=== PATIENT | female | born 1935 | race Caucasian/White ===

== ENCOUNTER 2021-12-01 18:06 | Inpatient (IN) | payer MEDICARE, OTHER, SELFPAY ==
[2021-12-01 18:19] VITALS: BP 161/93; PULSE 82; RESP 14; TEMP 36.4; O2SAT 96
--- NOTE | 2021-12-01 18:32 | CTR_ITS ---
PROCEDURE INFORMATION: Exam: CT Cervical Spine Without Contrast Exam date and time: 12/01/2021 6:59 PM Age: 86 years old Clinical indication: Injury or trauma; Fall; Blunt trauma; Additional info: Fall, AMS TECHNIQUE: Imaging protocol: Computed tomography images of the cervical spine without contrast. Radiation optimization: All CT scans at this facility use at least one of these dose optimization techniques: automated exposure control; mA and/or kV adjustment per patient size (includes targeted exams where dose is matched to clinical indication); or iterative reconstruction. COMPARISON: CT facial bones wo con* [id number] 12/01/2021 6:56 PM RADIATION DOSE METRICS: Total DLP (mGy-cm): 478.79 FINDINGS: Bones/joints: No acute fracture. Normal alignment. C2-C3: No significant disc protrusion. No severe spinal canal stenosis. No significant neural foraminal narrowing. C3-C4: No significant disc protrusion. No severe spinal canal stenosis. No significant neural foraminal narrowing. C4-C5: No significant disc protrusion. No severe spinal canal stenosis. No significant neural foraminal narrowing. C5-C6: No significant disc protrusion. No severe spinal canal stenosis. No significant neural foraminal narrowing. C6-C7: No significant disc protrusion. No severe spinal canal stenosis. No significant neural foraminal narrowing. C7-T1: No significant disc protrusion. No severe spinal canal stenosis. No significant neural foraminal narrowing. Lungs: Lung apices are normal. Soft tissues: Unremarkable. CT/CT cervical spin wo con* [id number] IMPRESSION: No acute findings.
--- NOTE | 2021-12-01 18:32 | CTR_ITS ---
PROCEDURE INFORMATION: Exam: CT Chest Without Contrast; Diagnostic Exam date and time: 12/01/2021 7:06 PM Age: 86 years old Clinical indication: Injury or trauma; Fall; Generalized; Blunt trauma (contusions or hematomas); Injury details: Left hip pain; Prior surgery; Surgery date: 6+ months; Surgery type: Hyst; Additional info: Fall, AMS TECHNIQUE: Imaging protocol: Diagnostic computed tomography of the chest without contrast. Radiation optimization: All CT scans at this facility use at least one of these dose optimization techniques: automated exposure control; mA and/or kV adjustment per patient size (includes targeted exams where dose is matched to clinical indication); or iterative reconstruction. COMPARISON: [place] Chest 1 [place] [id number] 05/13/2017 12:06 PM RADIATION DOSE METRICS: Total DLP (mGy-cm): 1255.96 FINDINGS: Lungs: Right lower lobe atelectasis. Emphysematous changes. Pleural spaces: Unremarkable. No pneumothorax. No pleural effusion. Heart: Coronary artery atherosclerotic calcifications. Lymph nodes: Several prominent lymph nodes in the mediastinum some of which are partially calcified measuring 14 mm. Vasculature: Unremarkable. No aortic aneurysm. 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 T12 vertebral body compression fracture with some retropulsion of bony fragments and mild spinal canal narrowing, age indeterminate. 14.3 mm Soft tissues: Unremarkable. PROCEDURE INFORMATION: Exam: CT Abdomen And Pelvis Without Contrast Exam date and time: 12/01/2021 7:06 PM Age: 86 years old Clinical indication: Injury or trauma; Fall; Generalized; Blunt trauma (contusions or hematomas); Injury details: Left hip pain; Prior surgery; Surgery date: 6+ months; Surgery type: Hyst; Additional info: Fall, AMS TECHNIQUE: Imaging protocol: Computed tomography of the abdomen and pelvis without contrast. Radiation optimization: All CT scans at this facility use at least one of these dose optimization techniques: automated exposure control; mA and/or kV adjustment per patient size (includes targeted exams where dose is matched to clinical indication); or iterative reconstruction. COMPARISON: No relevant prior studies available. RADIATION DOSE METRICS: Total DLP (mGy-cm): 1255.96 FINDINGS: Liver: Normal. No mass. Gallbladder and bile ducts: Cholelithiasis. Pancreas: Normal. No ductal dilation. Spleen: Normal. No splenomegaly. Adrenal glands: Normal. No mass. Kidneys and ureters: Normal. No hydronephrosis. Stomach and bowel: Diverticulosis without diverticulitis. Appendix: No evidence of appendicitis. Intraperitoneal space: Unremarkable. No free air. No significant fluid collection. Vasculature: Unremarkable. No abdominal aortic aneurysm. Lymph nodes: Unremarkable. No enlarged lymph nodes. Urinary bladder: Rider catheter in the urinary bladder with some air presumed iatrogenic. Reproductive: Unremarkable as visualized. Bones/joints: Left hip intertrochanteric comminuted somewhat displaced fracture, potentially acute. Soft tissues: Unremarkable. CT/[place] [id number] IMPRESSION: 1. Coronary artery atherosclerotic calcifications. 2. 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 3. Several prominent lymph nodes in the mediastinum some of which are partially calcified measuring 14 mm. 4. Right lower lobe atelectasis. 5. Emphysematous changes. 6. T12 vertebral body compression fracture with some retropulsion of bony fragments and mild spinal canal narrowing, age indeterminate. 14.3 mm IMPRESSION: 1. Left hip intertrochanteric comminuted somewhat displaced fracture, potentially acute. 2. Cholelithiasis. 3. Rider catheter in the urinary bladder with some air presumed iatrogenic. 4. Diverticulosis without diverticulitis.
--- NOTE | 2021-12-01 18:32 | XRR_ITS ---
PROCEDURE INFORMATION: Exam: XR Left Hip Exam date and time: 12/01/2021 7:42 PM Age: 86 years old Clinical indication: Hip pain; Left hip; Additional info: Fall, L hip pain, internal rotation TECHNIQUE: Imaging protocol: XR Left hip. Views: 2 or 3 views hip with pelvis when performed. COMPARISON: [place] [id number] 12/01/2021 7:06 PM FINDINGS: Bones/joints: Left hip basicervical to intertrochanteric mildly displaced fracture. Soft tissues: Unremarkable. XR/XR hip LT 2-3V wo/w pel* [id number] IMPRESSION: Left hip basicervical to intertrochanteric mildly displaced fracture.
--- NOTE | 2021-12-01 18:32 | CTR_ITS ---
PROCEDURE INFORMATION: Exam: CT Head Without Contrast Exam date and time: 12/01/2021 6:52 PM Age: 86 years old Clinical indication: Injury or trauma; Fall; Blunt trauma (contusions or hematomas); Additional info: Fall, AMS TECHNIQUE: Imaging protocol: Computed tomography of the head without contrast. Radiation optimization: All CT scans at this facility use at least one of these dose optimization techniques: automated exposure control; mA and/or kV adjustment per patient size (includes targeted exams where dose is matched to clinical indication); or iterative reconstruction. COMPARISON: CT head wo con* [id number] 05/13/2017 1:02 PM RADIATION DOSE METRICS: Total DLP (mGy-cm): 860.24 FINDINGS: Brain: Bilateral thalamic and basal ganglia chronic lacunar infarcts. Cerebral ventricles: No ventriculomegaly. Paranasal sinuses: Visualized sinuses are unremarkable. No fluid levels. Mastoid air cells: Visualized mastoid air cells are well aerated. Bones/joints: Unremarkable. No acute fracture. Soft tissues: Unremarkable. Other findings: Right temporal chronic infarct. Diffuse ventricular dilation, similar to prior exam likely secondary to underlying parenchymal atrophy. CT/CT head wo con* [id number] IMPRESSION: 1. Negative for intracranial hemorrhage or mass effect. 2. Right temporal chronic infarct. 3. Diffuse ventricular dilation, similar to prior exam likely secondary to underlying parenchymal atrophy. 4. Bilateral thalamic and basal ganglia chronic lacunar infarcts.
--- NOTE | 2021-12-01 18:32 | CTR_ITS ---
PROCEDURE INFORMATION: Exam: CT Maxillofacial Without Contrast Exam date and time: 12/01/2021 6:56 PM Age: 86 years old Clinical indication: Injury or trauma; Fall; Blunt trauma (contusions or hematomas); Other: Nothing visbly noted; Additional info: Fall, AMS TECHNIQUE: Imaging protocol: Computed tomography images of the face without contrast. Radiation optimization: All CT scans at this facility use at least one of these dose optimization techniques: automated exposure control; mA and/or kV adjustment per patient size (includes targeted exams where dose is matched to clinical indication); or iterative reconstruction. COMPARISON: CT head wo con* [id number] 12/01/2021 6:52 PM RADIATION DOSE METRICS: Total DLP (mGy-cm): 424.06 FINDINGS: Orbital cavities: Orbits are normal. Globes are unremarkable. Bones/joints: No acute fracture. Paranasal sinuses: Normal. No air-fluid levels. Soft tissues: Unremarkable. CT/CT facial bones wo con* [id number] IMPRESSION: No acute findings.
--- NOTE | 2021-12-01 18:35 | ECG_ITS ---
[facility] Test Date: 2021-12-01 Pat Name: Rita Vega Department: Room: Gender: Female Associate Automation Engineer: : [id number] Requested By: Martinez Ward Order Number: [id number] Sara MD: Rusty Vega M.D. Measurements Intervals [place] Rate: 81 P: 58 AR: 202 QRS: 106 QRSD: 95 T: 56 QT: 395 QTc: 459 Interpretive Statements SINUS RHYTHM INCOMPLETE RIGHT BUNDLE BRANCH BLOCK [90+ ms QRS DURATION, TERMINAL R IN V1/V2, 40+ ms S IN I/aVL/V4/V5/V6] POSSIBLE RIGHT VENTRICULAR HYPERTROPHY [SOME/ALL OF: PROMINENT R IN V1, LATE TRANSITION, RAD, PAUL, SSS] Compared to ECG 05/13/2017 22:17:54 Incomplete right bundle-branch block now present Electronically Signed On 12-02-2021 17:56:09 CDT by Rusty Vega M.D. [id number]
[2021-12-01 18:37] VITALS: BP 123/71; PULSE 85; RESP 16; O2SAT 96
--- NOTE | 2021-12-01 18:37 | W.ED.FALL ---
HPI - Fall General: Chief Complaint: ER Hold Stated Complaint: FALL WITH DEFORMITY SHORTENING AND ROTATION Time Seen by Provider: 12/01/21 18:24 History of Present Illness: Ms. Vega is an 86-year-old lady with reported history of stroke on aspirin and Plavix who presents to the emergency department due to fall with concern of right hip pain. Patient herself reports falling at home, she is unsure exactly why she fell but does denies preceding prodrome. She primarily landed on her left side and was unable to get up. Pain in the left hip region. Intensity of symptoms at worst was severe and improved with EMS administered analgesia. Worse with palpation and attempted movement. Unable to stand. No other specific changes in health, exacerbating, or alleviating factors identified. Fall from: standing Place fall occurred: home Loss of consciousness: Unsure Prolonged down time: unclear Review of Systems General: Reports: 10 or more systems reviewed and unremarkable except in HPI and below PFSH ED PFSH: Medical History History of stroke Surgical History History of hysterectomy Physical Exam Const: COMMON NORMALS: alert GENERAL APPEARANCE: cooperative and well developed HENMT: COMMON NORMALS: normocephalic and atraumatic HEAD & SCALP: normocephalic and atraumatic THROAT: posterior oropharynx normal Eye: COMMON NORMALS: conjunctivae normal CONJUNCTIVA: Yes conjunctivae normal SCLERA: sclerae normal Neck/C-Spine: COMMON NORMALS: supple GENERAL: Yes trachea midline Resp: COMMON NORMALS: normal respiratory effort and clear to auscultation bilaterally EFFORT & INSPECTION: Yes able to speak in complete sentences AUSCULTATION: clear to auscultation bilaterally Cardio: COMMON NORMALS: regular rate and regular rhythm RATE: regular rate RHYTHM: regular rhythm GI: COMMON NORMALS: Soft to palpation PALPATION: Yes Soft to palpation and No Tenderness to palpation present (GI) Extremity: NARRATIVE EXTREMITY EXAM: Tenderness palpation of left hip GENERAL: Yes normal exam except as noted and No edema Neuro: COMMON NORMALS: moves all extremities SENSORIUM/ORIENTATION: Yes alert and No Orientation impaired OTHER: Exact circumstances are somewhat unclear Psych: COMMON NORMALS: mental status grossly normal and Normal thought process present THOUGHT PROCESS: Normal thought process present Course ED course: - Patient was seen and evaluated by me at bedside - Patient placed on cardiac monitors, IV access obtained - Initial evaluation notable for exam as above. Head to toe exam performed. - Labs and xrays personally interpreted by me. EKG showing sinus rhythm, no STEMI -Analgesia given, Tdap updated for abrasions - Labs notable for mild leukocytosis, macrocytic anemia. Metabolic of mild decreased sodium/mild evidence of dehydration. Urinalysis not concerning urinary tract infection. - Imaging notable for various incidental findings. Traumatic injury isolated to left intertrochanteric fracture. On CT chest abdomen pelvis there is a T12 compression fracture with mild retropulsion, patient is a history of falls and patient is reexamined after this finding. She denies back pain and there is no tenderness specifically at this region, therefore believe that this is a chronic finding. Usually no distal sensory changes in the lower extremities other than baseline. - Discussed with orthopedics on-call - Upon serial reexamination after treatment the patient was improved - Based on patient history, evaluation, and testing as interpreted the most likely cause of the patient's condition is fall with hip fracture - The results of ED evaluation were discussed with the patient including plan for admission due to requirement for level of care not available if discharged to prevent significant worsening/deterioration. - Patient to be admitted to Dr Whitaker's service. - Patient was admitted without further deterioration or significant events. Note: Click bubbles or prepopulated larose in note writing are used for assistance with data collection and billing and are inherently more limited than narrative and other text portions of this note. Please use narrative for additional clinical history and defer to narrative/free test for any case of contradictory information. If information appears in only free text or click bubble it should be considered present or absent as reported. Please contact note clinical writer for clarifications of clinical information or contradictory information. MDM is a brief summary, contradictory or erroneous seeming information should be clarified and full note should be reviewed. Vital Signs: Vital signs: Vital Signs Temperature 98.0 F 12/08/21 14:24 Pulse Rate 73 12/08/21 14:24 Respiratory Rate 17 12/08/21 14:24 Blood Pressure 170/75 12/08/21 14:24 Pulse Oximetry 93 12/08/21 14:24 MDM - Fall Medical Decision Making 86-year-old lady presenting due to fall found to have hip fracture. Admitted for definitive management. Medical Records I reviewed the patient's medical records. Lab Data I reviewed the patient's lab results. : 12/07/21 03:34 12/08/21 02:21 Radiology Impressions Cervical Spine CT 12/01/21 18:32 IMPRESSION: No acute findings. Chest/Abdomen/Pelvis CT 12/01/21 18:32 IMPRESSION: 1. Coronary artery atherosclerotic calcifications. 2. 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 3. Several prominent lymph nodes in the mediastinum some of which are partially calcified measuring 14 mm. 4. Right lower lobe atelectasis. 5. Emphysematous changes. 6. T12 vertebral body compression fracture with some retropulsion of bony fragments and mild spinal canal narrowing, age indeterminate. 14.3 mm IMPRESSION: 1. Left hip intertrochanteric comminuted somewhat displaced fracture, potentially acute. 2. Cholelithiasis. 3. Rider catheter in the urinary bladder with some air presumed iatrogenic. 4. Diverticulosis without diverticulitis. Face CT 12/01/21 18:32 IMPRESSION: No acute findings. Hip/Pelvis X-Ray 12/02/21 19:16 IMPRESSION: 1. Internal orthopedic fixation involving an intertrochanteric fracture of the left hip in satisfactory position. Chest CT 12/05/21 12:47 IMPRESSION: 1. 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 2. Small right and small to moderate left pleural effusions. 3. Coronary artery atherosclerotic calcifications. 4. Scattered prominent mediastinal lymph nodes measuring up to 13 mm nonspecific. 5. Emphysematous changes. 6. Bibasilar atelectasis versus minimal infiltrate. 7. T12 vertebral body compression fracture with some retropulsion of bony fractures with mild spinal canal narrowing appears chronic. 8. Cholelithiasis. Head CT 12/05/21 12:55 IMPRESSION: 1. Old infarcts. 2. No acute intracranial finding. 3. No significant change compared with 12/01/2021. Chest X-Ray 12/08/21 08:00 IMPRESSION: No substantial interval change. Similar small left pleural effusion with left basilar atelectasis. Laboratory Results WBC 9.8 10^3/uL (4.0-10.0) 12/02/21 01:19 RBC 3.22 10^6/uL (4.1-5.3) L 12/02/21 01:19 Hgb 10.0 g/dL (11.5-15.3) L 12/02/21 01:19 Hct 32.6 % (37.0-47.0) L 12/02/21 01:19 MCV 101.2 fl (81-99) H 12/02/21 01:19 MCH 31.1 pg (28.0-34.0) 12/02/21 01:19 MCHC 30.7 g/dL (30.0-36.0) 12/02/21 01:19 RDW 13.7 % (12.1-15.1) 12/02/21 01:19 Plt Count 197 10^3/cmm (130-400) 12/02/21 01:19 MPV 10.8 fL (7.4-10.4) H 12/02/21 01:19 Neut % (Auto) 85.2 % 12/02/21 01:19 Lymph % (Auto) 5.7 % 12/02/21 01:19 [place] % (Auto) 8.4 % 12/02/21 01:19 Eos % (Auto) 0.1 % 12/02/21 01:19 Baso % (Auto) 0.2 % 12/02/21 01:19 Neut # (Auto) 8.37 10^3/uL (1.8-7.7) H 12/02/21 01:19 Lymph # (Auto) 0.6 10^3/uL (0.8-4.8) L 12/02/21 01:19 [place] # (Auto) 0.8 10^3/uL (0.2-0.9) 12/02/21 01:19 Eos # (Auto) 0.0 10^3/uL (0.0-0.8) 12/02/21 01:19 Baso # (Auto) 0.0 10^3/uL (0.0-0.1) 12/02/21 01:19 Nucleated RBC % (auto) 0 % 12/02/21 01:19 Nucleated RBCs # 0.0 /100WBC 12/02/21 01:19 PT 14.10 SECONDS (12.1-14.9) 12/01/21 18:10 INR 1.05 (0.8-1.2) 12/01/21 18:10 Sodium 137 mmol/L (136-145) 12/02/21 01:19 Potassium 5.0 mmol/L (3.5-5.1) 12/02/21 01:19 Chloride 104 mmol/L (98-107) 12/02/21 01:19 Carbon Dioxide 27 mmol/L (22-29) 12/02/21 01:19 Anion Gap 11.0 (5-19) 12/02/21 01:19 BUN 24 mg/dL (8-23) H 12/02/21 01:19 Creatinine 1.0 mg/dL (0.5-0.9) H 12/02/21 01:19 GFR Calculation Not Reportable 12/02/21 01:19 Glucose 143 mg/dL (65-115) H 12/02/21 01:19 Calculated Osmolality 291 mOsm/kg (285-295) 12/02/21 01:19 Calcium 8.3 mg/dL (8.5-10.5) L 12/02/21 01:19 Total Bilirubin 0.4 mg/dL (0.15-1.2) 12/01/21 18:10 AST 14 U/L (0-32) 12/01/21 18:10 ALT 9 U/L (0-33) 12/01/21 18:10 Alkaline Phosphatase 84 IU/L (35-105) 12/01/21 18:10 Troponin T Baseline 7 ng/L (0-10) 12/01/21 18:10 Troponin T 120 Minute 7.07 ng/L (0-10) 12/01/21 19:38 Delta Troponin T 0.07 ABS# (0-10) 12/01/21 19:38 Troponin T Hi Sens 6Hr 6.85 ng/L (0-10) 12/02/21 01:19 Troponin T Hi Sens 6Hr Delta -0.15 ng/L (0-12) L 12/02/21 01:19 Total Protein 6.5 g/dL (6.6-8.7) L 12/01/21 18:10 Albumin 3.8 g/dL (3.5-5.2) 12/01/21 18:10 Globulin 2.7 g/dL (1.3-4.6) 12/01/21 18:10 Urine Color Yellow (Yellow) 12/01/21 18:30 Urine Appearance Clear (CLEAR) 12/01/21 18:30 Urine pH 8 (5-7) H 12/01/21 18:30 Ur Specific [place] 1.015 (1.005-1.030) 12/01/21 18:30 Urine Protein Neg (Negative) 12/01/21 18:30 Urine Glucose (UA) Norm (Normal) 12/01/21 18:30 Urine Ketones Negative (Negative) 12/01/21 18:30 Urine Blood Neg (Negative) 12/01/21 18:30 Urine Nitrate Negative (Negative) 12/01/21 18:30 Urine Bilirubin Neg (Negative) 12/01/21 18:30 Prot Sulfosalicylic Acd Negative (Negative) 12/01/21 18:30 Urine Urobilinogen Norm mg/dL (Negative) 12/01/21 18:30 Ur Leukocyte Esterase Negative (Negative) 12/01/21 18:30 Discharge Plan Discharge Patient Disposition: Admitted As Inpatient Admit Provider: Hayes Whitaker Clinical Impression: Fall, Closed fracture of left hip Condition: Stable Discharge Diet: Cardiac Discharge Activity: Resume usual activity and Increase activity as tolerated Coding Level of Care Code ED Insurance Salesman for [employer] Fwd Exam Comprehensive
[2021-12-01 18:45] LABS: INR 1.05 (0.8-1.2)
[2021-12-01 18:53] LABS: Troponin(5th) Baseline 7 ng/L (0-10)
[2021-12-01 18:55] LABS: Alanine Aminotransferase 9 U/L (0-33); Albumin Level 3.8 g/dL (3.5-5.2); Alkaline Phosphatase 84 IU/L (35-105); Anion Gap 13.8 (5-19); Aspartate Amino Transferase 14 U/L (0-32); Blood Urea Nitrogen 21 mg/dL (8-23); Carbon Dioxide 25 mmol/L (22-29); Chloride 98 mmol/L (98-107); Globulin 2.7 g/dL (1.3-4.6); Glucose 129 mg/dL (65-115); Osmolality Calculated 281 mOsm/kg (285-295); Potassium 3.8 mmol/L (3.5-5.1); Sodium 133 mmol/L (136-145); Total Bilirubin 0.4 mg/dL (0.15-1.2); Total Protein 6.5 g/dL (6.6-8.7)
[2021-12-01 19:05] LABS: Add Urine Microscopic? NO; Charge for UA Resulting for Rev
[2021-12-01 19:09] LABS: Bilirubin Urine Neg (Negative); Blood Urine Neg (Negative); Glucose Urine UA Norm (Normal); Ketones Urine Negative (Negative); Leukocyte Esterase Urine Negative (Negative); Nitrate Urine Negative (Negative); Protein Urine Neg (Negative); Specific Gravity, Urine 1.015 (1.005-1.030); Sulfosalicylic Acid Urine Negative (Negative); Urine Appearance Clear (CLEAR); Urine Color Yellow (Yellow); Urobilinogen Urine Norm (Negative); pH Urine 8 (5-7)
[2021-12-01] MEDS: morphine 4 mg/mL SDV 1 mL 2 MG IVP (19:31)
[2021-12-01] MEDS: tetanus-dipt-pertussis 0.5 mL SDV IM (19:31)
[2021-12-01 20:09] LABS: Troponin 5 2HR 7.07 ng/L (0-10)
[2021-12-01 20:29] VITALS: BP 99/61; PULSE 81; RESP 18; O2SAT 93
--- NOTE | 2021-12-01 20:41 | PM.HP ---
Providers/Chief Complaint Primary Care Provider: Jim Oliveira MD Chief Complaint: FALL WITH DEFORMITY SHORTENING AND ROTATION History of Present Illness Rita Vega is a 86 year old female with past medical history of CVA , dementia , stays at home with daughters, was brought after she experienced a fall at home, from the description provided by the daughters, appears that the fall is secondary to she being off balance. At the time of my examination patient was complaining of mild left hip pain. Patient denied any chest pain shortness of breath, lightheadedness, dizziness, prior to the fall. Imaging studies done in the ER: Has shown : Left hip intertrochanteric comminuted somewhat displaced fracture,. CT head without contrast: Has shown no acute intracranial pathology, CT C-spine has shown no acute findings, CT facial bones without contrast:No acute findings. EKG: Sinus rhythm, with incomplete right bundle branch block. Her other labs and vitals have been reviewed. Review of Systems General: Reports: 10 or more systems reviewed and unremarkable except in HPI and below Const: Denies: fever(s), chills, body aches, change in appetite or diaphoresis Card: Denies: palpitations, edema, swelling of feet/ankles, dyspnea on exertion or orthopnea Resp: Denies: dyspnea, productive cough, wheezing or pain on inspiration GI: Denies: abdominal pain, nausea, vomiting, diarrhea or constipation : Denies: flank pain Musc: Reports: extremity pain; Denies: back pain or extremity swelling Neuro: Denies: headache(s), difficulty walking or confusion Medications/Allergies Home Medications Medication Instructions Recorded Confirmed Last Taken Type aspirin 81 mg tablet,delayed 81 mg PO DAILY 12/01/21 12/01/21 11/29/21 History release clopidogrel 75 mg tablet 75 mg PO DAILY 12/01/21 12/01/21 11/29/21 History donepezil 10 mg tablet 10 mg PO DAILY 12/01/21 12/01/21 11/29/21 History escitalopram oxalate 10 mg tablet 10 mg PO DAILY 12/01/21 12/01/21 11/29/21 History simvastatin 40 mg tablet 40 mg PO DAILY 12/01/21 12/01/21 11/29/21 History Allergies Allergy/AdvReac Type Severity Reaction Status Date / Time No Known Allergies Allergy Unverified 06/06/22 19:43 PFSH Acute PFSH: Medical History History of stroke Surgical History History of hysterectomy Vitals/I&O/Wt Last Vital Signs Temp 97.5 F L 12/01/21 18:19 Pulse 81 12/01/21 20:29 Resp 18 12/01/21 20:29 BP 99/61 12/01/21 20:29 Pulse Ox 93 12/01/21 20:29 Physical Exam HENMT: COMMON NORMALS: normocephalic and atraumatic HEAD & SCALP: normocephalic and atraumatic EXTERNAL EAR: Yes external ears normal Eye: GENERAL EYE: appearance normal, both eyes and all related structures Chest: CHEST: Yes Symmetrical chest wall rise Resp: COMMON NORMALS: clear to auscultation bilaterally EFFORT & INSPECTION: Yes symmetric chest movement AUSCULTATION: clear to auscultation bilaterally Cardio: COMMON NORMALS: regular rate, regular rhythm, S1 normal heart sound present, S2 normal heart sound present, No gallops present (Cardio), No murmurs present (Cardio), No rub (Cardio) and Peripheral pulses 2+ throughout RATE: regular rate RHYTHM: regular rhythm HEART SOUNDS: S1 normal heart sound present and S2 normal heart sound present PERIPHERAL PULSES: Peripheral pulses 2+ throughout GI: COMMON NORMALS: Normal to inspection, nondistended, normoactive bowel sounds present, Soft to palpation, non-tender, No hepatosplenomegaly present and no masses AUSCULTATION: Yes normoactive bowel sounds PALPATION: Yes Soft to palpation and Yes No hepatosplenomegaly present RECTAL EXAM: deferred Extremity: COMMON NORMALS: no clubbing, cyanosis or edema and no pedal edema Neuro: COMMON NORMALS: patient oriented x3 Urinary Catheter Management: Rider: Cath Placed During This Visit: yes Urinary Catheter Date of Insertion: 12/01/21 Data : 12/02/21 01:19 12/02/21 01:19 A&P Assessment and plan (1) Closed fracture of left hip: Status: Acute (2) History of stroke: Status: Acute (3) Fall: Status: Acute Plan 86 year old female with past medical history of CVA , dementia , stays at home with daughters, was brought after she experienced a fall at home, Assessment: #Closed fracture of left hip: Pain control Bowel regimen N.p.o. after midnight Dr. Whitaker is primary #History of CVA: On aspirin Plavix and statin at home #History of dementia: Continue Aricept #DVT prophylaxis: On Lovenox #CODE STATUS:AND Attestations Medical Necessity Statement*: Patient needs to be in hospital for management of left hip fracture. Anticipated length of stay greater than 2 midnights Coding Level of Care Code Acute Information Technology Account Manager for [facility] Fwd Exam Comprehensive Diagnoses Closed fracture of left hip S72.002A History of stroke Z86.73 Fall W19.XXXA
[2021-12-01 20:48] LABS: Troponin 5 2HR Delta 0.07 ABS# (0-10)
[2021-12-01] MEDS: morphine 4 mg/mL SDV 1 mL IVP (21:06)
[2021-12-01] MEDS: enoxaparin 40 mg/0.4 mL Syringe SUBCUT (21:07)
[2021-12-01] MEDS: sodium chloride 0.9% 1,000 ML 75 ML IV (21:23)
[2021-12-01 21:35] LABS: Basophils % 0.3 %; Eosinophils % 0.1 %; Hematocrit 31.9 % (37.0-47.0); Hemoglobin 9.8 g/dL (11.5-15.3); Lymphocytes # 0.4 10^3/uL (0.8-4.8); Lymphocytes % 3.6 %; Mean Corpuscular HGB Conc 30.7 g/dL (30.0-36.0); Mean Corpuscular Hemoglobin 30.8 pg (28.0-34.0); Mean Corpuscular Volume 100.3 fl (81-99); Mean Platelet Volume 10.8 fL (7.4-10.4); Monocytes # 0.6 10^3/uL (0.2-0.9); Monocytes % 5.7 %; Neutrophils # 10.19 10^3/uL (1.8-7.7); Neutrophils % 89.9 %; Nucleated Red Blood Cells % 0 %; Platelet Count 202 10^3/cmm (130-400); Red Blood Count 3.18 10^6/uL (4.1-5.3); Red Cell Distribution Width 13.7 % (12.1-15.1); White Blood Count 11.3 10^3/uL (4.0-10.0)
[2021-12-01] MEDS: sodium chloride 0.9% 1,000 ML 999 ML IV (22:11)
[2021-12-02] VITALS (20 sets, daily range): BP systolic 91–147; BP diastolic 53–82; PULSE 0–86; RESP 12–20; TEMP 36.3–37.3; O2SAT 91–97
--- NOTE | 2021-12-02 | SCC_ITS ---
Procedure done: Open reduction internal fixation lefthip with intramedullary device 72.4 seconds of fluoroscopic guidance, for a cumulative dose of 3.97 mGy, was provided to Dr. Whitaker by the radiology department. C-arm images of the LEFT hip were saved for the patient's permanent record. [facility]
[2021-12-02 01:43] LABS: Basophils % 0.2 %; Eosinophils % 0.1 %; Hematocrit 32.6 % (37.0-47.0); Lymphocytes # 0.6 10^3/uL (0.8-4.8); Lymphocytes % 5.7 %; Mean Corpuscular HGB Conc 30.7 g/dL (30.0-36.0); Mean Corpuscular Hemoglobin 31.1 pg (28.0-34.0); Mean Corpuscular Volume 101.2 fl (81-99); Mean Platelet Volume 10.8 fL (7.4-10.4); Monocytes # 0.8 10^3/uL (0.2-0.9); Monocytes % 8.4 %; Neutrophils # 8.37 10^3/uL (1.8-7.7); Neutrophils % 85.2 %; Nucleated Red Blood Cells % 0 %; Platelet Count 197 10^3/cmm (130-400); Red Blood Count 3.22 10^6/uL (4.1-5.3); Red Cell Distribution Width 13.7 % (12.1-15.1); White Blood Count 9.8 10^3/uL (4.0-10.0)
[2021-12-02 02:05] LABS: Blood Urea Nitrogen 24 mg/dL (8-23); Calcium 8.3 mg/dL (8.5-10.5); Carbon Dioxide 27 mmol/L (22-29); Chloride 104 mmol/L (98-107); Glucose 143 mg/dL (65-115); Osmolality Calculated 291 mOsm/kg (285-295); Sodium 137 mmol/L (136-145); Troponin 5 6HR 6.85 ng/L (0-10)
[2021-12-02 02:14] LABS: Troponin 5 6HR Delta -0.15 ng/L (0-12)
[2021-12-02] MEDS: morphine 4 mg/mL SDV 1 mL 2 MG IVP (06:31)
[2021-12-02] MEDS: sodium chloride 0.9% 1,000 ML 75 ML IV ×2 (06:46→20:50)
--- NOTE | 2021-12-02 07:49 | P.CONIM_ITS ---
Providers/Reason For Consult Consulting Physician/Specialty*: MD Julianne; orthopedic surgery Reason for Consult*: Left intratrochanteric hip fracture Attending Physician: Hayes Whitaker MD Primary Care Provider: Jim Oliveira MD History of Present Illness History of Present Illness Rita Vega is a 86 year old female home with her . She allegedly fell last night with resulting pain in left hip and inability to bear weight. She was transferred to our emergency room where radiographs revealed a left intratrochanteric hip fracture. She is admitted to medicine for surgical clearance anticipated surgical stabilization of her hip Medications/Allergies Home Medications Medication Instructions Recorded Confirmed Last Taken Type aspirin 81 mg tablet,delayed 81 mg PO DAILY 12/01/21 12/01/21 11/29/21 History release clopidogrel 75 mg tablet 75 mg PO DAILY 12/01/21 12/01/21 11/29/21 History donepezil 10 mg tablet 10 mg PO DAILY 12/01/21 12/01/21 11/29/21 History escitalopram oxalate 10 mg tablet 10 mg PO DAILY 12/01/21 12/01/21 11/29/21 History simvastatin 40 mg tablet 40 mg PO DAILY 12/01/21 12/01/21 11/29/21 History Allergies Allergy/AdvReac Type Severity Reaction Status Date / Time No Known Allergies Allergy Unverified 12/01/21 19:43 Current Medications Generic Name Dose Route Start Last Admin Trade Name Freq PRN Reason Stop Dose Admin Enoxaparin Sodium 40 mg 12/01/21 20:45 12/01/21 21:07 Enoxaparin 40 Mg/0.4 Ml Syringe SUBCUT 40 mg Q24H FATOUMATA Administration Sodium Chloride 1,000 mls @ 75 mls/hr 12/01/21 21:00 12/02/21 06:46 Sodium Chloride 0.9% IV 75 mls/hr .[id number] FATOUMATA Administration Morphine Sulfate 2 mg 12/01/21 20:33 12/02/21 06:31 Morphine 4 Mg/Ml Sdv 1 Ml IVP 2 mg Q4H PRN Administration SEVERE PAIN PFSH Acute PFSH: Medical History History of stroke Surgical History History of hysterectomy Vitals/I&O/Wt Last Vital Signs Temp 99.1 F 12/02/21 06:11 Pulse 75 12/02/21 06:11 Resp 20 H 12/02/21 06:31 BP 147/82 12/02/21 06:11 Pulse Ox 92 12/02/21 06:11 12/01/21 12/02/21 12/02/21 22:59 06:59 14:59 Intake Total 703.75 / 703.75 1000 / 1000 Balance 703.75 / 703.75 1000 / 1000 Weight last 48 hrs Weight 136 lb 14.4 oz Physical Exam Narrative: The patient talks with slurred speech but otherwise seems to have good understanding. She has slight shortening and external rotation of the left hip. There is exquisite pain with motion of the left hip. She has no pain with motion of her upper extremities or right lower extremities. He can flex and extend her toes and ankles of both feet. Her sensation is intact to both feet. She has a strong dorsalis pedis pulses bilaterally. Urinary Catheter Management: Rider: Cath Placed During This Visit: yes Reason for Continuing Indwelling Catheter: Perioperative Use in Selected Surgeries Urinary Catheter Date of Insertion: 12/01/21 Data : 12/02/21 01:19 12/02/21 01:19 Other Xray: My impression: 2 views of the left hip are personally interpreted. The patient has a minimally displaced left intratrochanteric hip fracture A&P Assessment and plan (1) Intertrochanteric fracture of left hip: The patient has a unstable left intratrochanteric hip fracture. She has significant osteopenia consistent with age. I discussed options with the patient.. I told the patient we could treat this nonoperatively but certainly they would be at risk for medical problems without surgery. Theywould have problems with pain that would require narcotics for pain control. They would require a long period of bedrest glucose and syrup weigher risk for pneumonia and skin breakdown. I discussed surgical intervention with the patient. I told them with open reduction internal fixation they should be able to be mobilized and resume ambulatory status. We can eliminate the problems associated with prolonged bed rest and would have better control of pain. Certainly there would be inherent risk with surgery. These would would include the risk of cardiac complications, stroke, infection, and even . I discussed risk of any orthopedic implant including nonunion, malunion, a component failure. I discussed the possible need for component removal. I discussed risk of deep venous thromboses and pulmonary emboli that are present with any treatment and the importance of DVT prophylaxis. The patient expressed good understanding of alternative treatments, seem to comprehend, and agrees to surgical intervention. I told her she likely will need fci placement Status: Acute Coding Level of Care Code Acute Senior Controls Analyst for [facility] Diagnoses Intertrochanteric fracture of left hip S72.142A
--- NOTE | 2021-12-02 10:36 | PC.CHAP ---
Pastoral Care Encounter/Spiritual Assessment Type of Contact [] Declined performing artist visit [] Patient/Family/Request visit [] Outpatient visit [] Follow-up visit [] Physician referral [] Code/Alert [x] Routine visit [] Staff referral [] Actively dying [] Patient sleeping [] Family support [] [] Out of room [] Palliative care [] [] Receiving care in room [] Pre-surgical visit [] Trauma [] Long length of stay [] ICU visit [] Other: Relational/Emotional Strength [x] Patient feels connected with others/family/visitors/staff [] Distress [] Loneliness/isolation [] Abandonment x Spirituality of Patient [x] Person of [place] []x Attends Yazdanism of their [place] [x] Believes in Prayer [] Reads Bible or Sikh materials [] There are Spiritual issues to be addressed Computer Numerical Control Machinist Interventions [x Prayer [x] Active listening [x] Non-anxious presence [] Spiritual/emotional support [] Crisis/trauma care [] Spiritual counseling [] Bereavement support [] Provided bereavement packet [] Provided Bible/devotional materials [] Provided toy/stuffed animal, coloring book to patient or family member [] Provided Communion [] Anointing/[place] [] Salvation [x] Completed spiritual assessment [] Other: Impact on Illness or Injury [] Angry [] Fearful [] Anxious [] Often cries [] Exhaustion [] Unable to work [] Unable to attend methodist [] Unable to walk/stand [] Unable to read [] Unable to drive [] Unable to eat/drink [] Unable to sleep [] Unable to be with family [] Patient intubated [] Other: Summary Time spent with patient 10 min
--- NOTE | 2021-12-02 11:41 | P.PN_ITS ---
Subjective Subjective: Patient seen this morning with her daughter at bedside. She is unable to tell me if she is in pain or not. I did offer her that if she is in pain she can let us know and we can give her pain medication. Patient seemed a little confused this morning. Patient does have a history of dementia. Vitals/I&O/Wt Last Vital Signs Temp 97.7 F 12/02/21 08:00 Pulse 77 12/02/21 08:00 Resp 15 12/02/21 08:00 BP 115/64 12/02/21 08:00 Pulse Ox 92 12/02/21 08:00 12/01/21 12/02/21 12/02/21 22:59 06:59 14:59 Intake Total 703.75 / 703.75 1000 / 1000 Balance 703.75 / 703.75 1000 / 1000 Weight last 48 hrs Weight 62.097 kg Physical Exam Narrative: General: Alert, oriented to self, patient seen laying in bed jignesh earing comfortable at this time. On 2 L nasal cannula. Elderly frail-appearing female HEENT: Normocephalic, atraumatic, EOMI, breathing normally, normal respiratory effort Cardio: Regular rate rhythm, normal S1-S2, no murmurs Respiratory: Clear to auscultation bilaterally no gross wheezes or rhonchi GI: Abdomen soft, nontender, nondistended, bowel sounds + Extremities: Trace edema bilateral lower extremities, left leg quite painful to touch on any manipulation. Left leg externally rotated slightly with slight shortening. Urinary Catheter Management: Rider: Cath Placed During This Visit: yes Reason for Continuing Indwelling Catheter: Perioperative Use in Selected Surgeries Urinary Catheter Date of Insertion: 12/01/21 Data : 12/02/21 01:19 12/02/21 01:19 A&P Assessment and plan (1) Intertrochanteric fracture of left hip: Status: Acute (2) Fall: Status: Acute (3) Closed fracture of left hip: Status: Acute (4) History of stroke: Status: Acute Plan #Closed fracture of hip #History of CVA #History of dementia ? Continue Aricept ? On aspirin Plavix statin at home ? We will hold Plavix in anticipation of surgery ? Pain control - Bowel regimen ? Patient is n.p.o. for surgery today ? Patient is on orthopedic surgery service. -We will probably need long-term facility after discharge. DNR/DNI Attestations Medical Necessity Statement*: Anticipate greater than 48-hour period stay for hip fracture. Coding Level of Care Code Acute Physical Therapist Technician for [facility] Diagnoses Intertrochanteric fracture of left hip S72.142A Fall W19.XXXA Closed fracture of left hip S72.002A History of stroke Z86.73
--- NOTE | 2021-12-02 13:34 | ANES.PREANE2 ---
Pre-Anesthetic Assessment Height/Weight: Weight 62.097 kg Temp Pulse Resp BP Pulse Ox 97.8 F 76 14 115/65 91 12/02/21 11:39 12/02/21 11:39 12/02/21 11:39 12/02/21 11:39 12/02/21 11:39 Preop Diagnosis: Left intratrochanteric hip fracture Operation Date: 12/02/21 17:15 Proposed Procedures p Trochanteric Femoral Nail(Left) - Hayes Whitaker MD Was Beta Levon taken within 24 hours: N/A Was Clonidine taken within 24 hours: N/A Last intake: 12/01/21 Social No alcohol and No tobacco Exam alert, clear to auscultation bilaterally and regular rate & rhythm oriented to self, place not year date Airway Submandibular: within normal limits Cervical ROM: Other (limited extension flexion ) Mallampati: Class III Comments: Comments: missing teeth Pulmonary None reported CV/HEM None reported denies arrhythmia, PA, CAD METS + 4 Elevated creatinine and BUN today Hepatic None reported GI None reported Metabolic None reported Musc/skel Osteoarthritis/DJD Acute fx Neuropsych Cerebrovascular Accident (On clopidogrel ) and Dementia CT Head CT/CT head wo con* [id number] IMPRESSION: 1. Negative for intracranial hemorrhage or mass effect. 2. Right temporal chronic infarct. 3. Diffuse ventricular dilation, similar to prior exam likely secondary to underlying parenchymal atrophy. 4. Bilateral thalamic and basal ganglia chronic lacunar infarcts. Anesthetic Plan ASA status: 3 (86 year old female with hx CVA, dementia, now with left hip fx) Anesthesia: Anesthesia Evaluation and General Other: We discussed risk and benefits of general anesthesia including PONV, sore throat (sometimes severe), corneal abrasion, positioning and peripheral nerve injuries, life threatening allergic reaction, post operative ICU admission requiring prolonged intubation, stroke, heart attack, , and rare incidences of recall. Patient consents to proceed with general anesthesia. Risk of > 500 ml blood loss (7ml/kg in children): No Medications/Allergies Home Medications Medication Instructions Recorded Confirmed Last Taken Type aspirin 81 mg tablet,delayed 81 mg PO DAILY 12/01/21 12/01/21 11/29/21 History release clopidogrel 75 mg tablet 75 mg PO DAILY 12/01/21 12/01/21 11/29/21 History donepezil 10 mg tablet 10 mg PO DAILY 12/01/21 12/01/21 11/29/21 History escitalopram oxalate 10 mg tablet 10 mg PO DAILY 12/01/21 12/01/21 11/29/21 History simvastatin 40 mg tablet 40 mg PO DAILY 12/01/21 12/01/21 11/29/21 History Allergies Allergy/AdvReac Type Severity Reaction Status Date / Time No Known Allergies Allergy Unverified 12/01/21 19:43 Current Medications Generic Name Dose Route Start Last Admin Trade Name Fre PRN Reason Stop Dose Admin Aspirin 81 mg 12/02/21 09:00 12/02/21 10:48 Aspirin 81 Mg Ec Tablet PO Not Given DAILY [facility] Atorvastatin Calcium 20 mg 12/02/21 09:00 12/02/21 10:49 Atorvastatin 40 Mg Tablet PO Not Given DAILY FATOUMATA Donepezil HCl 10 mg 12/02/21 09:00 12/02/21 10:49 Donepezil 5 Mg Tablet PO Not Given DAILY FATOUMATA Enoxaparin Sodium 40 mg 12/01/21 20:45 12/01/21 21:07 Enoxaparin 40 Mg/0.4 Ml Syringe SUBCUT 40 mg Q24H FATOUMATA Administration Escitalopram Oxalate 10 mg 12/02/21 09:00 12/02/21 10:49 Escitalopram 10 Mg Tablet PO Not Given DAILY FATOUMATA Sodium Chloride 1,000 mls @ 75 mls/hr 12/01/21 21:00 12/02/21 06:46 Sodium Chloride 0.9% IV 75 mls/hr .[id number] FATOUMATA Administration Morphine Sulfate 2 mg 12/01/21 20:33 12/02/21 06:31 Morphine 4 Mg/Ml Sdv 1 Ml IVP 2 mg Q4H PRN Administration SEVERE PAIN PFSH Anesthesia Medical History History of stroke Surgical History History of hysterectomy Data Anesthesia : 12/02/21 01:19 12/02/21 01:19 Short CBC 12/01/21 12/02/21 Range/Units 21:23 01:19 WBC 11.3 H 9.8 (4.0-10.0) 10^3/uL Hgb 9.8 L 10.0 L (11.5-15.3) g/dL Hct 31.9 L 32.6 L (37.0-47.0) % MCV 100.3 H 101.2 H (81-99) fl Plt Count 202 197 (130-400) 10^3/cmm Neut % (Auto) 89.9 85.2 % Neut # (Auto) 10.19 H 8.37 H (1.8-7.7) 10^3/uL BMP 12/01/21 12/02/21 18:10 01:19 Sodium 133 L 137 Potassium 3.8 5.0 Chloride 98 104 Carbon Dioxide 25 27 BUN 21 24 H Creatinine 0.9 1.0 H Glucose 129 H 143 H Calcium 9.0 8.3 L Cardiac Enzymes 12/01/21 12/01/21 12/02/21 Range/Units 18:10 19:38 01:19 Troponin T Baseline 7 (0-10) ng/L Troponin T 120 Minute 7.07 (0-10) ng/L Delta Troponin T 0.07 (0-10) ABS# Troponin T Hi Sens 6Hr 6.85 (0-10) ng/L Troponin T Hi Sens 6Hr Delta -0.15 L (0-12) ng/L Liver Function 12/01/21 Range/Units 18:10 Total Bilirubin 0.4 (0.15-1.2) mg/dL AST 14 (0-32) U/L ALT 9 (0-33) U/L Alkaline Phosphatase 84 (35-105) IU/L Albumin 3.8 (3.5-5.2) g/dL Urine 12/01/21 Range/Units 18:30 Urine Color Yellow (Yellow) Urine Appearance Clear (CLEAR) Urine pH 8 H (5-7) Ur Specific [place] 1.015 (1.005-1.030) Urine Protein Neg (Negative) Urine Glucose (UA) Norm (Normal) Urine Ketones Negative (Negative) Urine Nitrate Negative (Negative) Urine Bilirubin Neg (Negative) Ur Leukocyte Esterase Negative (Negative) Coags 12/01/21 18:10 PT 14.10 INR 1.05 Cardiac Studies: No Data to Display
--- NOTE | 2021-12-02 16:24 | PC.NURSE ---
Patient off unit to surgery.
[2021-12-02] MEDS: sodium chloride 0.9% 1,000 ML 30 ML IV (17:25)
--- NOTE | 2021-12-02 19:16 | XR_ITS ---
WS: [id number] Exam: XR hip LT 2-3V wo/w pel* [id number] Date/Time of Exam: 12/02/2021 7:16 PM Reason For Exam: OR PICS Intraoperative AP and lateral C-arm images of the left hip are submitted for evaluation. An intertrochanteric fracture of the left hip is been stabilized with an intramedullary jacquelyn and femor al neck screw in good alignment for healing. Postoperative changes in the adjacent soft tissues. XR/XR hip LT 2-3V wo/w pel* [id number] IMPRESSION: 1. Internal orthopedic fixation involving an intertrochanteric fracture of the left hip in satisfactory position.
--- NOTE | 2021-12-02 19:48 | P.OP_ITS ---
Operative Report Date of procedure: December 02, 2021 Pre-op diagnosis: Preop Diagnosis Left intratrochanteric hip fracture Post-op diagnosis: Same Procedure done: Open reduction internal fixation lefthip with intramedullary device Implants: [place]neka Gamma nail 13 mm x 360 mm, 10.5mm by 95 mmlag screw Pathology: none sent Surgeon: Hayes Whitaker Anesthesia: General Estimated blood loss (mL): 250 Findings: Patient has a comminuted left intratrochanteric fracture consisting of a Head He had a comminuted greater trochanter Condition: stable Disposition: PACU Procedure: The patient was taken to the operating room. They were given 1 g of Ancef. They were positioned on the fracture table with the right lower extremity in gentle traction. A timeout was performed. A 2 cm long incision was made proximal to the greater trochanter scalpel blade. Dissection was carried down to tip the greater trochanter. A guidepin was passed manually from the tip of the trochanter down the shaft. The proximal reamer was utilized to open up the proximal canal. Reaming was accomplished to 1221.5 mm. An 13 mm by 360 [place] gamma nail was passed down the canal without difficulty. Under visualization of fluoroscopy a guidepin was driven up into the head and neck at 125? angle. It was measured at 95 mm in length and a lag screw similar length was then placed and locked into place with the proximal locking screw. Intraoperative imaging was obtained verifying satisfactory position of the hardware and reduction of the fracture. Deep tissues were closed with 0 Vicryl as were subcutaneous tissues. The skin was closed with running 4-0 subcutaneous Monocryl suture. Sterile dressings were applied. The patient was extubated and taken to recovery room in stable condition.
--- NOTE | 2021-12-02 20:23 | ANE.PACU2 ---
Inpatient post-anesthesia follow up: Airway intact: Yes Vital signs: Temperature 99.2 F Pulse Rate 79 Respiratory Rate 18 Blood Pressure 118/81 Pulse Oximetry 92 Oxygen Delivery Me thod Nasal Cannula Oxygen Flow Rate 2 Fraction of Inspir ed Oxygen Hydration adequate: Yes Nausea and vomiting: No Pain level: 1 Mental status: Baseline
[2021-12-02 20:38] LABS: Glucose Point of Care 104 mg/dL (70-110)
[2021-12-02] MEDS: enoxaparin 40 mg/0.4 mL Syringe SUBCUT (20:50)
[2021-12-03] VITALS (13 sets, daily range): BP systolic 72–124; BP diastolic 44–73; PULSE 80–116; RESP 12–20; TEMP 36.3–36.9; O2SAT 91–98
[2021-12-03 02:33] LABS: Basophils % 0.1 %; Hematocrit 25.4 % (37.0-47.0); Hemoglobin 8.2 g/dL (11.5-15.3); Lymphocytes # 0.5 10^3/uL (0.8-4.8); Lymphocytes % 5.1 %; Mean Corpuscular HGB Conc 32.3 g/dL (30.0-36.0); Mean Corpuscular Hemoglobin 30.7 pg (28.0-34.0); Mean Corpuscular Volume 95.1 fl (81-99); Mean Platelet Volume 11.3 fL (7.4-10.4); Monocytes # 0.7 10^3/uL (0.2-0.9); Monocytes % 7.9 %; Neutrophils # 7.74 10^3/uL (1.8-7.7); Neutrophils % 86.6 %; Nucleated Red Blood Cells % 0 %; Platelet Count 159 10^3/cmm (130-400); Red Blood Count 2.67 10^6/uL (4.1-5.3); Red Cell Distribution Width 13.9 % (12.1-15.1)
[2021-12-03 02:56] LABS: Anion Gap 12.6 (5-19); Blood Urea Nitrogen 21 mg/dL (8-23); Calcium 7.8 mg/dL (8.5-10.5); Carbon Dioxide 23 mmol/L (22-29); Chloride 106 mmol/L (98-107); Glucose 151 mg/dL (65-115); Osmolality Calculated 290 mOsm/kg (285-295); Potassium 4.6 mmol/L (3.5-5.1); Sodium 137 mmol/L (136-145)
--- NOTE | 2021-12-03 06:47 | PC.NURSE ---
Patient transferred to chair at this time for breakfast per orders. Patient alert and oriented, but once transferred into chair patient had episode of unresponsiveness. Skin pale and cool. BP assessed, 72/44. Patient became responsive again and answered questions appropriately. [place] Hel[place] and facial muscles normal and equal. Dressings to left hip dry and intact. Patient transferred back into bed with two assist. Bp up to 98/58. Dr. Arcos notified with order received to monitor VS at 0800 and notify of any significances or changes.
--- NOTE | 2021-12-03 07:26 | P.PN_ITS ---
Subjective Subjective: Ms. Vega states she is not doing well. Complains of pain and not feeling well Vitals/I&O/Wt Last Vital Signs Temp 97.6 F 12/03/21 04:00 Pulse 97 12/03/21 04:00 Resp 12 12/03/21 04:00 BP 98/58 12/03/21 06:44 Pulse Ox 91 12/03/21 04:00 12/02/21 12/03/21 12/03/21 22:59 06:59 14:59 Intake Total 1200 / 2200 50 / 2250 Output Total 650 / 650 550 / 1200 Balance 550 / 1550 -500 / 1050 Weight last 48 hrs Weight 136 lb 14.4 oz Physical Exam Narrative: Left hip dressing clean and dry. Some swelling left thigh Urinary Catheter Management: Rider: Cath Placed During This Visit: yes Reason for Continuing Indwelling Catheter: Perioperative Use in Selected Surgeries Urinary Catheter Date of Insertion: 12/01/21 Data : 12/03/21 01:43 12/03/21 01:43 A&P Assessment and plan (1) Status post open reduction with internal fixation of fracture: Begin to mobilize with therapy. Will need detention placement Status: Acute Attestations Medical Necessity Statement*: Needs supportive medical care and detention. Coding Level of Care Code Acute Cosmetic Counselor for [facility] Diagnoses Status post open reduction with internal fixation of fracture Z98.890; Z87.81
[2021-12-03] MEDS: donepezil 5 MG Tablet 10 MG PO (09:55)
[2021-12-03] MEDS: aspirin 81 mg EC Tablet PO (09:55)
[2021-12-03] MEDS: escitalopram 10 mg Tablet PO (09:55)
[2021-12-03] MEDS: atorvastatin 40 mg Tablet 20 MG PO (09:55)
--- NOTE | 2021-12-03 13:39 | PC.OT ---
OT EVALUATION ORDERS RECEIVED. PATIENT SLEEPING SOUNDLY AND DOES NOT AWAKEN DESPITE MY EXTENSIVE CONVERSATION WITH THE DAUGHTER WHO IS PRESENT. WILL ATTEMPT AGAIN TOMORROW.
--- NOTE | 2021-12-03 14:01 | P.PN_ITS ---
Subjective Subjective: Seen this morning. Patient sleeping comfortably in bed. Daughter at bedside. She is having a little bit of pain. Vitals/I&O/Wt Last Vital Signs Temp 98.3 F 12/03/21 12:00 Pulse 113 H 12/03/21 12:00 Resp 16 12/03/21 12:00 BP 101/63 12/03/21 12:00 Pulse Ox 94 12/03/21 12:00 12/02/21 12/03/21 12/03/21 22:59 06:59 14:59 Intake Total 1200 / 2200 50 / 2250 1528 / 1528 Output Total 650 / 650 550 / 1200 Balance 550 / 1550 -500 / 1050 1528 / 1528 Weight last 48 hrs Weight 62.097 kg Physical Exam Narrative: General: Alert, oriented to self, patient seen laying in bed appearing comfortable at this time.? On 2 L nasal cannula.? Elderly frail- appearing female. Patient is asleep. Daughter present at bedside. HEENT: Normocephalic, atraumatic, EOMI, breathing normally, normal respiratory effort Cardio: Regular rate rhythm, normal S1-S2, no murmurs Respiratory: Clear to auscultation bilaterally no gross wheezes or rhonchi GI: Abdomen soft, nontender, nondistended, bowel sounds + Extremities: Trace edema bilateral lower extremities, dressing appears clean. Urinary Catheter Management: Rider: Cath Placed During This Visit: yes Reason for Continuing Indwelling Catheter: Perioperative Use in Selected Ralph geries Urinary Catheter Date of Insertion: 12/01/21 Data : 12/04/21 09:02 12/04/21 09:02 A&P Assessment and plan (1) Status post open reduction with internal fixation of fracture: Status: Acute (2) Intertrochanteric fracture of left hip: Status: Acute (3) Fall: Status: Acute (4) History of stroke: Status: Acute Plan #Closed fracture of hip #History of CVA #History of dementia ? Continue Aricept ? On aspirin Plavix statin at home ? restart Plavix in am ? Pain control - Bowel regimen ? start diet - order 1 unit prbc, - check electrolytes ? Patient is on orthopedic surgery service. -We will probably need fpc facility after discharge. DNR/DNI Attestations Medical Necessity Statement*: Status post hip surgery postop day 1. Needs continued physical therapy. Will need placement Coding Level of Care Code Acute Aeronautical Project Engineer for Shanti Herman Diagnoses Status post open reduction with internal fixation of fracture Z98.890; Z87.81 Intertrochanteric fracture of left hip S72.142A Fall W19.XXXA History of stroke Z86.73
[2021-12-03] MEDS: enoxaparin 40 mg/0.4 mL Syringe SUBCUT (20:24)
[2021-12-04] VITALS (8 sets, daily range): BP systolic 104–119; BP diastolic 65–76; PULSE 81–109; RESP 16–20; TEMP 36.7–36.9; O2SAT 94–99
[2021-12-04] MEDS: HYDROcodone-acetaminophen 5-325 mg Tablet 1 TAB PO (00:26)
[2021-12-04] MEDS: sodium chloride 0.9% 1,000 ML 75 ML IV ×2 (06:24→19:43)
--- NOTE | 2021-12-04 08:08 | PM.PN ---
Subjective Subjective: Patient very can confused. No acute issues Vitals/I&O/Wt Last Vital Signs Temp 98.4 F 12/04/21 07:21 Pulse 84 12/04/21 07:21 Resp 20 H 12/04/21 07:21 BP 115/70 12/04/21 07:21 Pulse Ox 96 12/04/21 07:21 12/03/21 12/04/21 12/04/21 22:59 06:59 14:59 Intake Total 640 / 2168 360 / 2528 Balance 640 / 2168 360 / 2528 Physical Exam Narrative: Left hip dressing clean and dry, expected Urinary Catheter Management: Rider: Cath Placed During This Visit: yes Reason for Continuing Indwelling Catheter: Perioperative Use in Selected Surgeries Urinary Catheter Date of Insertion: 12/01/21 Data : 12/03/21 01:43 12/03/21 01:43 A&P Assessment and plan (1) Status post open reduction with internal fixation of fracture: Continue to mobilize. Needs halfway. Status: Acute Attestations Medical Necessity Statement*: Awaiting halfway. Coding Level of Care Code Acute Liner Checker for Shanti Herman Diagnoses Status post open reduction with internal fixation of fracture Z98.890; Z87.81
[2021-12-04 09:17] LABS: Basophils % 0.3 %; Eosinophils # 0.1 10^3/uL (0.0-0.8); Eosinophils % 0.9 %; Hematocrit 27.7 % (37.0-47.0); Hemoglobin 9.1 g/dL (11.5-15.3); Lymphocytes # 0.6 10^3/uL (0.8-4.8); Mean Corpuscular HGB Conc 32.9 g/dL (30.0-36.0); Mean Corpuscular Hemoglobin 28.6 pg (28.0-34.0); Mean Corpuscular Volume 87.1 fl (81-99); Mean Platelet Volume 10.6 fL (7.4-10.4); Monocytes # 0.7 10^3/uL (0.2-0.9); Monocytes % 8.4 %; Neutrophils # 6.62 10^3/uL (1.8-7.7); Nucleated Red Blood Cells % 0 %; Platelet Count 126 10^3/cmm (130-400); Red Blood Count 3.18 10^6/uL (4.1-5.3); Red Cell Distribution Width 18.2 % (12.1-15.1)
[2021-12-04 09:37] LABS: Anion Gap 11.7 (5-19); Blood Urea Nitrogen 18 mg/dL (8-23); Calcium 7.9 mg/dL (8.5-10.5); Carbon Dioxide 24 mmol/L (22-29); Chloride 103 mmol/L (98-107); Glucose 108 mg/dL (65-115); Osmolality Calculated 282 mOsm/kg (285-295); Potassium 3.7 mmol/L (3.5-5.1); Sodium 135 mmol/L (136-145)
[2021-12-04] MEDS: donepezil 5 MG Tablet 10 MG PO (10:24)
[2021-12-04] MEDS: atorvastatin 40 mg Tablet 20 MG PO (10:24)
[2021-12-04] MEDS: escitalopram 10 mg Tablet PO (10:24)
[2021-12-04] MEDS: aspirin 81 mg EC Tablet PO (10:24)
--- NOTE | 2021-12-04 12:57 | XR_ITS ---
WS: [id number] Exam: XR chest 1V portable [id number] Date/Time of Exam: 12/04/2021 1:08 PM Reason For Exam: hypoxia Comparison 05/13/2017. There is atelectasis in the left lower lobe as well as the lingula. Small left basal pleural effusion is seen. The right lung is fully expanded. Chronic interstitial changes in the bilateral upper lobes . Normal cardiomediastinal silhouette. Bony structures are intact. XR/XR chest 1V portable [id number] IMPRESSION: 1. Atelectasis in the left lower lobe and lingula with small left basal pleural effusion. 2. Chronic interstitial changes in the bilateral upper lobes.
[2021-12-04] MEDS: FUROsemide 10 mg/mL SDV 2mL 20 MG IVP (16:45)
--- NOTE | 2021-12-04 19:23 | PM.PN ---
Subjective Subjective: InSeen this AM. Daughter present at bedside. Patient has not had a bowel movement so far. Pain is a little bit better controlled. Patient feels a little better compared to yesterday after the blood pressure and according to the daughter. Patient has dementia and is confused unable to provide a history secondary to her history of stroke. She is able to tell me that she is hurting a little bit. She is on 4 L nasal cannula today. She has been eating okay and daughter states that there has been some trouble with swallowing in the past where food goes down the wrong pipe. Vitals/I&O/Wt Last Vital Signs Temp 98.1 F 12/04/21 11:08 Pulse 95 12/04/21 15:21 Resp 18 12/04/21 15:21 BP 119/69 12/04/21 15:21 Pulse Ox 98 12/04/21 15:21 12/04/21 12/04/21 12/04/21 06:59 14:59 22:59 Intake Total 360 / 2528 760 / 760 Balance 360 / 2528 760 / 760 Physical Exam Narrative: General: Alert, oriented to self, patient seen laying in bed appearing comfortable at this time.? On4 L nasal cannula.? Elderly frail-appearing female.? Patient is asleep.? Daughter present at bedside. HEENT: Normocephalic, atraumatic, EOMI, breathing normally, normal respiratory effort Cardio: Regular rate rhythm, normal S1-S2, no murmurs Respiratory: Clear to auscultation bilaterally no gross wheezes or rhonchi, mild crackles at left base, diminished on right GI: Abdomen soft, nontender, nondistended, bowel sounds + Extremities: Trace edema bilateral lower extremities, dressing appears clean. Urinary Catheter Management: Rider: Cath Placed During This Visit: yes Reason for Continuing Indwelling Catheter: Perioperative Use in Selected Surgeries Urinary Catheter Date of Insertion: 12/01/21 Data : 12/04/21 09:02 12/04/21 09:02 A&P Assessment and plan (1) Status post open reduction with internal fixation of fracture: Status: Acute (2) Intertrochanteric fracture of left hip: Status: Acute (3) Fall: Status: Acute (4) History of stroke: Status: Acute (5) Postoperative atelectasis: Status: Acute (6) Oxygen dependent: Status: Acute Plan #Closed fracture of hip, status post surgery, postop day 2 #Postoperative atelectasis #History of CVA #History of dementia ? Continue Aricept ? On aspirin Plavix statin at home ?Continue Plavix today ? Requiring 4 L oxygen, will order chest x-ray. Most likely this is postop atelectasis. Encourage incentive spirometry ? Pain control - Bowel regimen ?Patient's daughter stated that she had some trouble swallowing. We will order speech and swallow evaluation and make patient n.p.o. till then. -Patient is status post 1 unit packed RBC, repeat hemoglobin 9.1 today. She appears better. ? Hydrate with physical therapy today. - check electrolytes ? Patient is on orthopedic surgery service. -pharmacy technologist working on placement. DNR/DNI Attestations Medical Necessity Statement*: will need continued in hospital care. requiring 4L O2. Will workup and treat. Also case management working on placement. Coding Level of Care Code Acute High Density Finishing Operator for Shanti Herman Diagnoses Status post open reduction with internal fixation of fracture Z98.890; Z87.81 Intertrochanteric fracture of left hip S72.142A Fall W19.XXXA History of stroke Z86.73 Postoperative atelectasis J95.89; J98.11 Oxygen dependent Z99.81
[2021-12-04] MEDS: enoxaparin 40 mg/0.4 mL Syringe SUBCUT (19:45)
[2021-12-05] VITALS (7 sets, daily range): BP systolic 121–129; BP diastolic 64–75; PULSE 80–104; RESP 16–17; TEMP 36.7–36.8; O2SAT 91–96
[2021-12-05 02:36] LABS: Basophils % 0.1 %; Eosinophils # 0.2 10^3/uL (0.0-0.8); Eosinophils % 2.1 %; Hematocrit 24.7 % (37.0-47.0); Hemoglobin 7.9 g/dL (11.5-15.3); Lymphocytes # 0.7 10^3/uL (0.8-4.8); Lymphocytes % 8.8 %; Mean Corpuscular Hemoglobin 28.8 pg (28.0-34.0); Mean Corpuscular Volume 90.1 fl (81-99); Mean Platelet Volume 11.2 fL (7.4-10.4); Monocytes # 0.7 10^3/uL (0.2-0.9); Monocytes % 9.2 %; Neutrophils # 6.24 10^3/uL (1.8-7.7); Nucleated Red Blood Cells % 0 %; Platelet Count 121 10^3/cmm (130-400); Red Blood Count 2.74 10^6/uL (4.1-5.3); White Blood Count 7.9 10^3/uL (4.0-10.0)
[2021-12-05 03:03] LABS: Procalcitonin 0.34 ng/mL (0-0.5)
[2021-12-05 03:15] LABS: Anion Gap 11.5 (5-19); Blood Urea Nitrogen 13 mg/dL (8-23); Calcium 7.4 mg/dL (8.5-10.5); Carbon Dioxide 24 mmol/L (22-29); Chloride 101 mmol/L (98-107); Glucose 126 mg/dL (65-115); Osmolality Calculated 278 mOsm/kg (285-295); Potassium 3.5 mmol/L (3.5-5.1); Sodium 133 mmol/L (136-145)
[2021-12-05] MEDS: escitalopram 10 mg Tablet PO (08:08)
[2021-12-05] MEDS: donepezil 5 MG Tablet 10 MG PO (08:08)
[2021-12-05] MEDS: FUROsemide 10 mg/mL SDV 2mL 20 MG IVP (08:08)
[2021-12-05] MEDS: aspirin 81 mg EC Tablet PO (08:08)
[2021-12-05] MEDS: clopidogrel 75 mg Tablet PO (08:08)
[2021-12-05] MEDS: atorvastatin 40 mg Tablet 20 MG PO (08:08)
[2021-12-05] MEDS: sodium chloride 0.9% 1,000 ML 75 ML IV (08:09)
--- NOTE | 2021-12-05 11:42 | PC.SOCIAL ---
Pg 2 IMM Explained to pt's daughter, Pg 2 IMM. No questions voiced. Provided daughter a copy. Initialed, dated, & timed a copy & placed in chart.
--- NOTE | 2021-12-05 12:47 | CTR_ITS ---
PROCEDURE INFORMATION: Exam: CT Chest Without Contrast; Diagnostic Exam date and time: 12/05/2021 4:34 PM Age: 86 years old Clinical indication: Dyspnea; Additional info: Hypoxia TECHNIQUE: Imaging protocol: Diagnostic computed tomography of the chest without contrast. Radiation optimization: All CT scans at this facility use at least one of these dose optimization techniques: automated exposure control; mA and/or kV adjustment per patient size (includes targeted exams where dose is matched to clinical indication); or iterative reconstruction. COMPARISON: [place] [id number] 12/01/2021 7:06 PM RADIATION DOSE METRICS: Total DLP (mGy-cm): 502.02 FINDINGS: Lungs: Emphysematous changes. Bibasilar atelectasis versus minimal infiltrate. Pleural spaces: Small right and small to moderate left pleural effusions. Heart: Coronary artery atherosclerotic calcifications. Lymph nodes: Scattered prominent mediastinal lymph nodes measuring up to 13 mm nonspecific. Vasculature: Unremarkable. No aortic aneurysm. 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 T12 vertebral body compression fracture with some retropulsion of bony fractures with mild spinal canal narrowing appears chronic. Soft tissues: Cholelithiasis. CT/CT chest wo con [id number] IMPRESSION: 1. 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 2. Small right and small to moderate left pleural effusions. 3. Coronary artery atherosclerotic calcifications. 4. Scattered prominent mediastinal lymph nodes measuring up to 13 mm nonspecific. 5. Emphysematous changes. 6. Bibasilar atelectasis versus minimal infiltrate. 7. T12 vertebral body compression fracture with some retropulsion of bony fractures with mild spinal canal narrowing appears chronic. 8. Cholelithiasis.
--- NOTE | 2021-12-05 12:51 | P.PN_ITS ---
Subjective Subjective: Seen this morning. Patient appears a little drowsy. She did eat really well for breakfast her daughter stated. Patient not using incentive spirometer but that is not in her room anymore. It may have gotten lost during the move from the other room to this room. We will order a new one for her. She still on 4 L nasal cannula. Procalcitonin is negative, white blood cell is negative, afebrile overnight. Hemoglobin 7.9, RDW 18. Iron studies have been ordered. Vitals/I&O/Wt Last Vital Signs Temp 98.1 F 12/05/21 11:41 Pulse 82 12/05/21 11:41 Resp 16 12/05/21 07:46 BP 123/70 12/05/21 11:41 Pulse Ox 96 12/05/21 11:41 12/04/21 12/05/21 12/05/21 22:59 06:59 14:59 Intake Total 1878.75 / 2638.75 300 / 2938.75 1412.5 / 1412.5 Balance 1878.75 / 2638.75 300 / 2938.75 1412.5 / 1412.5 Weight last 48 hrs Weight 69.082 kg Physical Exam Narrative: General: Alert, oriented to self, patient seen sitting up in chair appearing comfortable on4 L nasal cannula.? Elderly frail-appearing female.? Daughter present at bedside. HEENT: Normocephalic, atraumatic, EOMI, breathing normally, normal respiratory effort Cardio: Regular rate rhythm, normal S1-S2, no murmurs Respiratory: Clear to auscultation bilaterally no gross wheezes or rhonchi, diminished bilaterally at bases. GI: Abdomen soft, nontender, nondistended, bowel sounds + Extremities: Trace edema bilateral lower extremities, dressing appears clean. Urinary Catheter Management: Rider: Cath Placed During This Visit: yes Reason for Continuing Indwelling Catheter: Perioperative Use in Selected Surgeries Urinary Catheter Date of Insertion: 12/01/21 Data : 12/05/21 01:50 12/05/21 01:50 A&P Assessment and plan (1) Oxygen dependent: Status: Acute (2) Postoperative atelectasis: Status: Acute (3) Status post open reduction with internal fixation of fracture: Status: Acute (4) Intertrochanteric fracture of left hip: Status: Acute (5) Fall: Status: Acute (6) History of stroke: Status: Acute Plan #Closed fracture of hip, status post surgery, postop day 3 #Postoperative atelectasis #History of CVA #History of dementia #Iron deficiency anemia ? Continue Aricept ? On aspirin Plavix statin at home ?Continue Plavix today ? Requiring 4 L oxygen, will order chest x-ray.? Most likely this is postop atelectasis. Encourage incentive spirometry. We will check CT chest today. Procalcitonin negative. I do not suspect a pneumonia but I will make sure with CT scan. Patient is afebrile. -Patient a bit sleepier than usual. I will stop hydrocodone. We will do Ty lenol for pain control versus ibuprofen for now. I will check CT head. ? Pain control - Bowel regimen ? Continue regular diet as per speech and swallow recommendations. -Patient is status post 1 unit packed RBC, repeat hemoglobin 9.1. She appears better. Hemoglobin dropped to 7.9 again today. I will order iron studies TIBC. After studies are drawn I will order IV iron for the patient. Most likely there is a component of iron deficiency anemia. ? Hydrate with physical therapy today. - check electrolytes ? Patient is on orthopedic surgery service. -feather drying machine operator working on placement. DNR/DNI Attestations Medical Necessity Statement*: Requiring 4 L oxygen. Needs continued in hospital stay for now for work-up of iron deficiency anemia and treatment and hypoxia. Not ready to go to jail yet. Coding Level of Care Code Acute Occupational Therapy Technician for Shanti Herman Diagnoses Oxygen dependent Z99.81 Postoperative atelectasis J95.89; J98.11 Status post open reduction with internal fixation of fracture Z98.890; Z87.81 Intertrochanteric fracture of left hip S72.142A Fall W19.XXXA History of stroke Z86.73
--- NOTE | 2021-12-05 12:55 | CTR_ITS ---
PROCEDURE INFORMATION: Exam: CT Head Without Contrast Exam date and time: 12/05/2021 4:30 PM Age: 86 years old Clinical indication: Cerebral degeneration; Dementia; Additional info: Drowsy PT TECHNIQUE: Imaging protocol: Computed tomography of the head without contrast. Radiation optimization: All CT scans at this facility use at least one of these dose optimization techniques: automated exposure control; mA and/or kV adjustment per patient size (includes targeted exams where dose is matched to clinical indication); or iterative reconstruction. COMPARISON: CT head wo con* [id number] 12/01/2021 6:52 PM RADIATION DOSE METRICS: Total DLP (mGy-cm): 882 FINDINGS: Brain: Chronic lacunar infarcts in the basal ganglia and thalami are again identified not significantly changed. There is moderate cortical atrophy. Low-density changes in the white matter are consistent with nonspecific small vessel chronic ischemic change. There is no intracranial mass, hemorrhage or edema. Cerebral ventricles: Lateral ventricles are prominent, probably due to underlying diffuse parenchymal atrophy not significantly changed since 2017. Paranasal sinuses: Visualized sinuses are unremarkable. No fluid levels. Mastoid air cells: Visualized mastoid air cells are well aerated. Bones/joints: Unremarkable. No acute fracture. Soft tissues: Unremarkable. Other findings: There is chronic right temporal cortical infarct not significantly changed. CT/CT head wo con* [id number] IMPRESSION: 1. Old infarcts. 2. No acute intracranial finding. 3. No significant change compared with 12/01/2021.
[2021-12-05 13:25] LABS: Iron 18 ug/dL (37-145); Percent Saturation 14.4 % (20-50); Total Iron Binding Capacity 125 mcg/dl; Unsaturated Iron Binding 107 ug/dL (112-347)
[2021-12-05 13:37] LABS: Ferritin 1392 ng/mL (15-150)
--- NOTE | 2021-12-05 17:11 | USCV_ITS ---
Rita Vega Age: 86 Gender: F : 1935 Exam Date: 12/05/2021 21:03 Ordering Phys: Chanelle Menchaca MD Technologist: Carlos French [place]am Location[place] [facility] [place]ication: r/o heart failure BP: 121 / 74 HR: 87 Rhythm: Sinus Technical Quality: Adequate MEASUREMENTS (Male / Female) Normal Values 2D ECHO LV Diastolic Diameter PLAX 3.6 cm 4.2 - 5.9 / 3.9 - 5.3 cm LV Systolic Diameter PLAX 2.7 cm IVS Diastolic Thickness 1.1 cm 0.6 - 1.0 / 0.6 - 0.9 cm IVS Systolic Thickness 1.4 cm LVPW Diastolic Thickness 1.3 cm 0.6 - 1.0 / 0.6 - 0.9 cm LVPW Systolic Thickness 1.5 cm LVOT Diameter 2.0 cm LV Ejection Fraction 2D Teich 48.0 % LV Ejection Fraction MOD 2C 57.5 % LV Ejection Fraction 2C AL 57.6 % LA Diameter 2.5 cm RA Width 3.5 cm RA Height 3.7 cm Aorta at Sinotubular Diameter 2.6 cm M-MODE Aortic Annulus Diameter 3.5 cm LA Ao Ratio MM 0.8 MV E Point Septal Separation 0.6 cm DOPPLER AV Peak Velocity 123.2 cm/s LVOT Peak Velocity 120.0 cm/s AV Area Cont Eq vti 2.7 cm squared AV Area Cont Eq pk 2.9 cm squared MV Area PHT 2.5 cm squared Mitral E to A Ratio 0.7 MV E' Velocity 48.0 cm/s Mitral E to MV E' Ratio 12.5 Mitral E to LV E' Lateral Ratio 13.4 Mitral E to LV E' Septal Ratio 11.6 Right Atrial Pressure 8.0 mmHg PV Peak Velocity 104.0 cm/s FINDINGS Left Ventricle Normal left ventricular size and systolic function, EF 75%. Moderate left ventricular hypertrophy. No regional wall motion abnormalities. Grade I/IV diastolic dysfunction (abnormal relaxation filling pattern), normal to mildly elevated filling pressures. Right Ventricle Possibly of normal size and ejection fraction Right Atrium Normal right atrial size. Left Atrium Normal left atrial size. Mitral Valve Thickened mitral valve. Moderate mitral annular calcification. Aortic Valve Minimally thickened with the no stenosis Tricuspid Valve Tricuspid valve not well visualized. Pulmonic Valve No gross abnormalities noted Pericardium No pericardial effusion. Aorta Normal aortic annulus size. IVC Inferior vena cava not visualized. CONCLUSIONS Normal left ventricular size and systolic function, EF 75% (visual) .Moderate left ventricular hypertrophy. No regional wall motion abnormalities. Grade I/IV diastolic dysfunction (abnormal relaxation filling pattern), normal to mildly elevated filling pressures. Thickened mitral valve. Moderate mitral annular calcification. Minimally thickened with the no stenosis. Tricuspid valve not well visualized. There is no pericardial effusion. There are no intracardiac masses. Compared to the study from 05/14/2017, there may not be a significant change Dr Chuckie Alcaraz MD FACC (Electronically Signed) Final Date: 06 December 2021 16:09 S
[2021-12-05] MEDS: FUROsemide 10 mg/mL SDV 4mL 40 MG IVP (17:29)
[2021-12-05] MEDS: iron sucrose 200 MG in sodium chloride 0.9% (100 ml) 100 ML 220 MG IV (17:29)
[2021-12-05] MEDS: enoxaparin 40 mg/0.4 mL Syringe SUBCUT (21:43)
[2021-12-06] VITALS (9 sets, daily range): BP systolic 89–147; BP diastolic 59–77; PULSE 77–92; RESP 12–17; TEMP 36.6–37.2; O2SAT 92–98
[2021-12-06 04:05] LABS: Basophils % 0.1 %; Eosinophils # 0.2 10^3/uL (0.0-0.8); Eosinophils % 3.1 %; Hematocrit 23.4 % (37.0-47.0); Hemoglobin 7.8 g/dL (11.5-15.3); Lymphocytes # 0.7 10^3/uL (0.8-4.8); Lymphocytes % 9.7 %; Mean Corpuscular HGB Conc 33.3 g/dL (30.0-36.0); Mean Corpuscular Hemoglobin 29.3 pg (28.0-34.0); Mean Platelet Volume 10.8 fL (7.4-10.4); Monocytes # 0.7 10^3/uL (0.2-0.9); Monocytes % 9.8 %; Neutrophils # 5.22 10^3/uL (1.8-7.7); Neutrophils % 76.6 %; Nucleated Red Blood Cells % 0 %; Platelet Count 160 10^3/cmm (130-400); Red Blood Count 2.66 10^6/uL (4.1-5.3); Red Cell Distribution Width 16.9 % (12.1-15.1); White Blood Count 6.8 10^3/uL (4.0-10.0)
[2021-12-06 04:24] LABS: Blood Urea Nitrogen 16 mg/dL (8-23); Calcium 7.9 mg/dL (8.5-10.5); Carbon Dioxide 31 mmol/L (22-29); Chloride 98 mmol/L (98-107); Glucose 115 mg/dL (65-115); Magnesium 1.8 mg/dL (1.7-2.3); Osmolality Calculated 280 mOsm/kg (285-295); Sodium 134 mmol/L (136-145)
[2021-12-06] MEDS: acetaminophen 325 mg Tablet 650 MG PO (09:54)
[2021-12-06] MEDS: atorvastatin 40 mg Tablet 20 MG PO (09:54)
[2021-12-06] MEDS: donepezil 5 MG Tablet 10 MG PO (09:55)
[2021-12-06] MEDS: aspirin 81 mg EC Tablet PO (09:56)
[2021-12-06] MEDS: escitalopram 10 mg Tablet PO (09:56)
[2021-12-06] MEDS: clopidogrel 75 mg Tablet PO (09:56)
--- NOTE | 2021-12-06 12:40 | P.PN_ITS ---
Subjective Subjective: States she is feeling better. Denies any pain at this time. Vitals/I&O/Wt Last Vital Signs Temp 97.9 F 12/06/21 03:59 Pulse 92 12/06/21 12:00 Resp 12 12/06/21 12:00 BP 89/59 12/06/21 12:00 Pulse Ox 98 12/06/21 12:00 12/05/21 12/06/21 12/06/21 22:59 06:59 14:59 Intake Total 1145 / 2797.5 100 / 2897.5 Output Total 200 / 200 Balance 1145 / 2797.5 -100 / 2697.5 Weight last 48 hrs Weight 67.132 kg Weight 69.082 kg Physical Exam Narrative: General: Alert, oriented to self, patient seen sitting up in chair appearing comfortable on 4 L nasal cannula.? Elderly frail-appearing female.? Daughter present at bedside. HEENT: Normocephalic, atraumatic, EOMI, breathing normally, normal respiratory effort Cardio: Regular rate rhythm, normal S1-S2, no murmurs Respiratory: Clear to auscultation bilaterally no gross wheezes or rhonchi, diminished bilaterally at bases. GI: Abdomen soft, nontender, nondistended, bowel sounds + Extremities: Trace edema bilateral lower extremities, dressing appears clean. Urinary Catheter Management: Rider: Cath Placed During This Visit: yes Reason for Continuing Indwelling Catheter: Other Urinary Catheter Date of Insertion: 12/05/21 Urinary Catheter Time of Insertion: 22:00 Data : 12/06/21 03:49 12/06/21 03:49 A&P Assessment and plan (1) Oxygen dependent: Status: Acute (2) Postoperative atelectasis: Status: Acute (3) Status post open reduction with internal fixation of fracture: Status: Acute (4) Intertrochanteric fracture of left hip: Status: Acute (5) Fall: Status: Acute (6) History of stroke: Status: Acute Plan #Closed fracture of hip, status post surgery, postop day 4 #Postoperative atelectasis #History of CVA #History of dementia #Iron deficiency anemia #T12 vertebral compression fracture with some retropulsion of bony fractures with mild spinal canal narrowing appears chronic #Small right and small to moderate left pleural effusion ? Continue Aricept ? On aspirin Plavix statin at home ?Continue Plavix today ? Requiring 4 L oxygen, Most likely this is postop atelectasis. Encourage incentive spirometry.? Chest CT showed large hiatal hernia with atlantoaxial malrotation of the stomach. Procalcitonin negative.? Patient does have bilateral pleural effusions and I have given Lasix 40 IV to see if she can be diuresed. ? More arousable today. Hydrocodone was stopped. Wakefulness is much better. ? CT head negative and shows chronic changes same as prior. ? She is to walk with physical therapy today to see how much oxygen requires and ambulation. ? Encourage incentive spirometry ? I will try Solu-Medrol 40 IV daily for her. ? Appears clinically dehydrated, will give 500 cc normal saline bolus. I will stop Lasix. ? Status post 1 unit packed RBC. Hemoglobin stable. ? Continue IV iron x3 days total. ? Continue to work with physical therapy ?Continue bowel regimen DNR/DNI Attestations Medical Necessity Statement*: Requiring 4 L oxygen.? Patient does appear better but still requiring 4 L nasal cannula. We will continue to monitor. She also has bilateral pleural effusions. We will continue to manage. Coding Level of Care Code Acute Reference Test Clerk for Chg Fwd Diagnoses Oxygen dependent Z99.81 Postoperative atelectasis J95.89; J98.11 Status post open reduction with internal fixation of fracture Z98.890; Z87.81 Intertrochanteric fracture of left hip S72.142A Fall W19.XXXA History of stroke Z86.73
[2021-12-06] MEDS: sodium chloride 0.9% 500 ML IV (15:16)
[2021-12-06 15:35] LABS: Phosphorus 1.6 mg/dL (2.5-4.5)
[2021-12-06] MEDS: amoxicillin-clav 875-125 mg Tablet 1 TAB PO (17:36)
[2021-12-06] MEDS: iron sucrose 200 MG in sodium chloride 0.9% (100 ml) 100 ML 220 MG IV (20:26)
[2021-12-06] MEDS: enoxaparin 40 mg/0.4 mL Syringe SUBCUT (20:26)
[2021-12-06 20:56] LABS: Glucose Point of Care 215 mg/dL (70-110)
[2021-12-07 04:00] VITALS: BP 135/72; PULSE 82; RESP 156; TEMP 37; O2SAT 90
[2021-12-07 04:29] LABS: Hematocrit 23.3 % (37.0-47.0); Hemoglobin 7.8 g/dL (11.5-15.3); Lymphocytes # 0.3 10^3/uL (0.8-4.8); Lymphocytes % 4.2 %; Mean Corpuscular HGB Conc 33.5 g/dL (30.0-36.0); Mean Corpuscular Hemoglobin 28.8 pg (28.0-34.0); Mean Platelet Volume 10.6 fL (7.4-10.4); Monocytes # 0.3 10^3/uL (0.2-0.9); Monocytes % 4.5 %; Neutrophils # 6.64 10^3/uL (1.8-7.7); Neutrophils % 90.3 %; Nucleated Red Blood Cells % 0 %; Platelet Count 213 10^3/cmm (130-400); Red Blood Count 2.71 10^6/uL (4.1-5.3); Red Cell Distribution Width 16.7 % (12.1-15.1); White Blood Count 7.4 10^3/uL (4.0-10.0)
[2021-12-07 04:47] LABS: Anion Gap 12.6 (5-19); Blood Urea Nitrogen 23 mg/dL (8-23); Calcium 8.1 mg/dL (8.5-10.5); Carbon Dioxide 28 mmol/L (22-29); Chloride 99 mmol/L (98-107); Glucose 155 mg/dL (65-115); Osmolality Calculated 289 mOsm/kg (285-295); Potassium 3.6 mmol/L (3.5-5.1); Sodium 136 mmol/L (136-145)
[2021-12-07 07:42] VITALS: BP 159/73; PULSE 83; RESP 16; TEMP 36.7; O2SAT 93
[2021-12-07 08:00] VITALS: PULSE 83; O2SAT 93
--- NOTE | 2021-12-07 08:04 | PC.SOCIAL ---
IMM updated IMM dated and initialed and copy put in chart and given to patient
[2021-12-07] MEDS: aspirin 81 mg EC Tablet PO (10:00)
[2021-12-07] MEDS: amoxicillin-clav 875-125 mg Tablet 1 TAB PO ×2 (10:00→18:23)
[2021-12-07] MEDS: atorvastatin 40 mg Tablet 20 MG PO (10:00)
[2021-12-07] MEDS: escitalopram 10 mg Tablet PO (10:01)
[2021-12-07] MEDS: donepezil 5 MG Tablet 10 MG PO (10:01)
[2021-12-07] MEDS: clopidogrel 75 mg Tablet PO (10:01)
[2021-12-07 12:00] VITALS: BP 146/74; PULSE 88; RESP 16; TEMP 36.6; O2SAT 91
--- NOTE | 2021-12-07 14:45 | PM.PN ---
Subjective Subjective: Seen this morning patient looks a lot better compared to previous days. Vitals/I&O/Wt Last Vital Signs Temp 97.9 F 12/07/21 12:00 Pulse 88 12/07/21 12:00 Resp 16 12/07/21 12:00 BP 146/74 12/07/21 12:00 Pulse Ox 91 12/07/21 12:00 12/06/21 12/07/21 12/07/21 22:59 06:59 14:59 Intake Total 730 / 880 120 / 120 Output Total 850 / 850 300 / 1150 Balance -120 / 30 -300 / -270 120 / 120 Weight last 48 hrs Weight 67.132 kg Physical Exam Narrative: General: Alert, oriented to self, patient seen sitting up in chair ON ROOM AIR.? Elderly frail-appearing female.? Daughter present at bedside. HEENT: Normocephalic, atraumatic, EOMI, breathing normally, normal respiratory effort Cardio: Regular rate rhythm, normal S1-S2, no murmurs Respiratory: Clear to auscultation bilaterally no gross wheezes or rhonchi, diminished bilaterally at bases. GI: Abdomen soft, nontender, nondistended, bowel sounds + Extremities: Trace edema bilateral lower extremities, dressing appears clean. Urinary Catheter Management: Rider: Cath Placed During This Visit: yes Reason for Continuing Indwelling Catheter: Other Urinary Catheter Date of Insertion: 12/05/21 Urinary Catheter Time of Insertion: 22:00 Data : 12/07/21 03:34 12/07/21 03:34 A&P Assessment and plan (1) Postoperative atelectasis: Status: Acute (2) Status post open reduction with internal fixation of fracture: Status: Acute (3) Intertrochanteric fracture of left hip: Status: Acute (4) Fall: Status: Acute (5) History of stroke: Status: Acute Plan #Closed fracture of hip, status post surgery, postop day 5 #Postoperative atelectasis #History of CVA #History of dementia #Iron deficiency anemia #T12 vertebral compression fracture with some retropulsion of bony fractures with mild spinal canal narrowing appears chronic #Small right and small to moderate left pleural effusion - better ? Continue Aricept ? On aspirin Plavix statin at home ?Continue Plavix today ? Requiring 4 L oxygen, Most likely this is postop atelectasis. Encourage incentive spirometry.? Chest CT showed large hiatal hernia with atlantoaxial malrotation of the stomach.? Procalcitonin negative.? Patient does have bilateral pleural effusions and received Lasix 40 IV. ? CT head negative and shows chronic changes same as prior. ? Encourage incentive spirometry ? Status post 1 unit packed RBC.? Hemoglobin stable. ? Continue IV iron x3 days total. ? Continue to work with physical therapy ?Continue bowel regimen -Patient is on room air. She may be able to discharge to the half-way tomorrow. DNR/DNI Attestations Medical Necessity Statement*: DC to half-way in a.m as long as she is stable. Coding Level of Care Code Acute Prospecting Driller Helper for g Fwd Diagnoses Postoperative atelectasis J95.89; J98.11 Status post open reduction with internal fixation of fracture Z98.890; Z87.81 Intertrochanteric fracture of left hip S72.142A Fall W19.XXXA History of stroke Z86.73
[2021-12-07] MEDS: acetaminophen 325 mg Tablet 650 MG PO (15:50)
[2021-12-07 16:00] VITALS: BP 160/75; PULSE 77; RESP 16; TEMP 36.7; O2SAT 94
[2021-12-07] MEDS: enoxaparin 40 mg/0.4 mL Syringe SUBCUT (19:51)
[2021-12-07 20:00] VITALS: BP 148/74; PULSE 81; PULSE 87; RESP 16; TEMP 37.3; O2SAT 92; O2SAT 95
[2021-12-07] MEDS: iron sucrose 200 MG in sodium chloride 0.9% (100 ml) 100 ML 220 MG IV (20:58)
--- NOTE | 2021-12-07 23:43 | PC.NURSE ---
IV Pt pulled IV out earlier in evening and was restarted to infuse Iron. Has again pulled IV out. Leaving out for now. No meds and is probablly transferring to SNF tomorrow
[2021-12-08] VITALS: BP 148/73; PULSE 84; RESP 17; TEMP 37.5; O2SAT 90
[2021-12-08] MEDS: acetaminophen 325 mg Tablet 650 MG PO (03:39)
[2021-12-08 03:42] LABS: Blood Urea Nitrogen 23 mg/dL (8-23); Calcium 8.2 mg/dL (8.5-10.5); Carbon Dioxide 27 mmol/L (22-29); Chloride 99 mmol/L (98-107); Glucose 146 mg/dL (65-115); Osmolality Calculated 286 mOsm/kg (285-295); Phosphorus 2.9 mg/dL (2.5-4.5); Sodium 135 mmol/L (136-145)
[2021-12-08 04:00] VITALS: BP 173/77; PULSE 73; RESP 16; TEMP 36.8; O2SAT 90
[2021-12-08 08:00] VITALS: BP 157/80; PULSE 82; RESP 16; TEMP 36.7; O2SAT 91
--- NOTE | 2021-12-08 08:00 | XRR_ITS ---
PROCEDURE INFORMATION: Exam: XR Chest Exam date and time: 12/08/2021 6:17 AM Age: 86 years old Clinical indication: Other: Assess pleural efussion; Additional info: Assess pleural effusions TECHNIQUE: Imaging protocol: XR of the chest. Views: 1 view. COMPARISON: CT chest wo con [id number] 12/05/2021 4:34 PM FINDINGS: Lungs: Left basilar atelectasis. Pleural spaces: Small left pleural effusion, similar to prior. No pneumothorax. Heart/Mediastinum: Large hiatal hernia. Bones/joints: Unremarkable. XR/XR chest 1V portable [id number] IMPRESSION: No substantial interval change. Similar small left pleural effusion with left basilar atelectasis.
[2021-12-08] MEDS: clopidogrel 75 mg Tablet PO (09:24)
[2021-12-08] MEDS: amoxicillin-clav 875-125 mg Tablet 1 TAB PO (09:24)
[2021-12-08] MEDS: escitalopram 10 mg Tablet PO (09:24)
[2021-12-08] MEDS: aspirin 81 mg EC Tablet PO (09:24)
[2021-12-08] MEDS: donepezil 5 MG Tablet 10 MG PO (09:25)
[2021-12-08] MEDS: atorvastatin 40 mg Tablet 20 MG PO (09:25)
[2021-12-08 10:32] VITALS: PULSE 72; O2SAT 94
[2021-12-08 12:00] VITALS: BP 170/75; PULSE 73; RESP 17; TEMP 36.7; O2SAT 93
[2021-12-08 12:42] LABS: Adenovirus Not Detected (NOT DETECT); Chlamydia Pneumoniae Not Detected (NOT DETECT); Coronavirus 229E,HKU1,NL63,OC4 Not Detected (NOT DETECT); Human Metapneumovirus Not Detected (NOT DETECT); Human Rhinovirus/Enterovirus Not Detected (NOT DETECT); Influenza A Not Detected (NOT DETECT); Influenza A H1 Not Detected (NOT DETECT); Influenza A H1-2009 Not Detected (NOT DETECT); Influenza A H3 Not Detected (NOT DETECT); Influenza B Not Detected (NOT DETECT); Mycoplasma Pneumoniae Not Detected (NOT DETECT); Parainfluenza Virus Type 1 Not Detected (NOT DETECT); Parainfluenza Virus Type 2 Not Detected (NOT DETECT); Parainfluenza Virus Type 3 Not Detected (NOT DETECT); Parainfluenza Virus Type 4 Not Detected (NOT DETECT); Respiratory Syncytial Virus A Not Detected (NOT DETECT); Respiratory Syncytial Virus B Not Detected (NOT DETECT); SARS-COV-2 Not Detected (NOT DETECT)
--- NOTE | 2021-12-08 13:10 | PM.DCS ---
Discharge Providers Date of Admission: 12/02/21 05:34 Date of Discharge: December 08, 2021 Attending Provider at Admission: Hayes Whitaker MD Attending Provider at Discharge: Nito Cosme MD Consults: Orthopedics: Dr. Whitaker Primary Care Provider: Jim Oliveira MD Diagnoses at Discharge Discharge Diagnosis (1) Postoperative atelectasis: Status: Acute (2) Status post open reduction with internal fixation of fracture: Status: Acute (3) Intertrochanteric fracture of left hip: Status: Acute (4) Fall: Status: Acute (5) History of stroke: Status: Acute Reason for Visit Reason for Visit: FALL WITH DEFORMITY SHORTENING AND ROTATION Brief History: History as per HPI: Rita Vega is a 86 year old female with past medical history of CVA , dementia , stays at home with daughters, was brought after she experienced a fall at home, from the description provided by the daughters, appears that the fall is secondary to she being off balance. Hospital Course Hospital Course Patient admitted to hospital further evaluation and management. Orthopedics was consulted. She underwent ORIF on 12/02. She tolerated the procedure well. Postprocedure patient developed blood loss anemia and mild hypoxia. Overall, she received monitor blood transfusion. For hypoxia it is believed her symptoms are secondary to postoperative atelectasis and mild congestive heart failure posttransfusion. She underwent echocardiography which showed an EF of 70% with grade 1 diastolic dysfunction. Patient hospitalization was otherwise unremarkable. She has been on room air for more than 24 hours. She is been working fine with physical therapy. Safe discharge planning were discussed in detail with patient and patient's family. They wanted patient to be discharged to SNF for further physical rehabitation. Patient has been discharged medically stable condition to [facility]. Physical Exam Urinary Catheter Management: Rider: Cath Placed During This Visit: yes Reason for Continuing Indwelling Catheter: Required Immobilization for Trauma or Surgery or Anesthesia Urinary Catheter Date of Insertion: 12/05/21 Urinary Catheter Time of Insertion: 22:00 Discharge Data Studies Completed and Pending Completed Studies During Hospitalization Category Date Time Status CT cervical spin wo con* [id number] Stat Cat Scan 12/01/21 18:[address] chest abdomen pelvis [[place] [id number] Cat Scan 12/01/21 18:32 Completed ] Stat CT chest wo con [id number] Urgent Cat Scan 12/05/21 12:[address] facial bones wo con* [id number] Stat Cat Scan 12/01/21 18:[address] head wo con* [id number] Stat Cat Scan 12/01/21 18:[address] head wo con* [id number] Urgent Cat Scan 12/05/21 12:55 Completed XR chest 1V portable [id number] Routine Exams 12/08/21 08:00 Completed XR chest 1V portable [id number] Urgent Exams 12/04/21 12:57 Completed XR hip LT 2-3V wo/w pel* [id number] Routine Exams 12/02/21 19:16 Completed XR hip LT 2-3V wo/w pel* [id number] Stat Exams 12/01/21 18:32 Completed CV. echo complete* [id number] Routine Ultrasound 12/05/21 17:11 Completed Pending at discharge Category Date Time Status Occult Blood Stool [Immunochemical Fecal OCB] Stat Lab 12/05/21 12:43 Uncollected Radiology Impressions Cervical Spine CT 12/01/21 18:32 IMPRESSION: No acute findings. Chest/Abdomen/Pelvis CT 12/01/21 18:32 IMPRESSION: 1. Coronary artery atherosclerotic calcifications. 2. 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 3. Several prominent lymph nodes in the mediastinum some of which are partially calcified measuring 14 mm. 4. Right lower lobe atelectasis. 5. Emphysematous changes. 6. T12 vertebral body compression fracture with some retropulsion of bony fragments and mild spinal canal narrowing, age indeterminate. 14.3 mm IMPRESSION: 1. Left hip intertrochanteric comminuted somewhat displaced fracture, potentially acute. 2. Cholelithiasis. 3. Rider catheter in the urinary bladder with some air presumed iatrogenic. 4. Diverticulosis without diverticulitis. Face CT 12/01/21 18:32 IMPRESSION: No acute findings. Hip/Pelvis X-Ray 12/02/21 19:16 IMPRESSION: 1. Internal orthopedic fixation involving an intertrochanteric fracture of the left hip in satisfactory position. Chest CT 12/05/21 12:47 IMPRESSION: 1. 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 2. Small right and small to moderate left pleural effusions. 3. Coronary artery atherosclerotic calcifications. 4. Scattered prominent mediastinal lymph nodes measuring up to 13 mm nonspecific. 5. Emphysematous changes. 6. Bibasilar atelectasis versus minimal infiltrate. 7. T12 vertebral body compression fracture with some retropulsion of bony fractures with mild spinal canal narrowing appears chronic. 8. Cholelithiasis. Head CT 12/05/21 12:55 IMPRESSION: 1. Old infarcts. 2. No acute intracranial finding. 3. No significant change compared with 12/01/2021. Chest X-Ray 12/08/21 08:00 IMPRESSION: No substantial interval change. Similar small left pleural effusion with left basilar atelectasis. Echocardiographic: CONCLUSIONS ?Normal left ventricular size and systolic function, EF 75% ?(visual) .Moderate left ventricular hypertrophy. No regional ?wall motion abnormalities. Grade I/IV diastolic dysfunction ?(abnormal relaxation filling pattern), normal to mildly elevated ?filling pressures. ?Thickened mitral valve. Moderate mitral annular calcification. ?Minimally thickened with the no stenosis. ?Tricuspid valve not well visualized. ?There is no pericardial effusion. ?There are no intracardiac masses. ?Compared to the study from 05/14/2017, there may not be a ?significant change ?Dr Chuckie Alcaraz MD [facility] ?(Electronically Signed) ?Final Date:? ? ? 06 December 2021 ? 16:09 S Laboratory Results WBC 7.4 10^3/uL (4.0-10.0) 12/07/21 03:34 RBC 2.71 10^6/uL (4.1-5.3) L 12/07/21 03:34 Hgb 7.8 g/dL (11.5-15.3) L 12/07/21 03:34 Hct 23.3 % (37.0-47.0) L 12/07/21 03:34 MCV 86.0 fl (81-99) 12/07/21 03:34 MCH 28.8 pg (28.0-34.0) 12/07/21 03:34 MCHC 33.5 g/dL (30.0-36.0) 12/07/21 03:34 RDW 16.7 % (12.1-15.1) H 12/07/21 03:34 Plt Count 213 10^3/cmm (130-400) D 12/07/21 03:34 MPV 10.6 fL (7.4-10.4) H 12/07/21 03:34 Neut % (Auto) 90.3 % 12/07/21 03:34 Lymph % (Auto) 4.2 % 12/07/21 03:34 [place] % (Auto) 4.5 % 12/07/21 03:34 Eos % (Auto) 0.0 % 12/07/21 03:34 Baso % (Auto) 0.0 % 12/07/21 03:34 Neut # (Auto) 6.64 10^3/uL (1.8-7.7) 12/07/21 03:34 Lymph # (Auto) 0.3 10^3/uL (0.8-4.8) L 12/07/21 03:34 [place] # (Auto) 0.3 10^3/uL (0.2-0.9) 12/07/21 03:34 Eos # (Auto) 0.0 10^3/uL (0.0-0.8) 12/07/21 03:34 Baso # (Auto) 0.0 10^3/uL (0.0-0.1) 12/07/21 03:34 Nucleated RBC % (auto) 0 % 12/07/21 03:34 Nucleated RBCs # 0.0 /100WBC 12/07/21 03:34 PT 14.10 SECONDS (12.1-14.9) 12/01/21 18:10 INR 1.05 (0.8-1.2) 12/01/21 18:10 Sodium 135 mmol/L (136-145) L 12/08/21 02:21 Potassium 4.0 mmol/L (3.5-5.1) 12/08/21 02:21 Chloride 99 mmol/L (98-107) 12/08/21 02:21 Carbon Dioxide 27 mmol/L (22-29) 12/08/21 02:21 Anion Gap 13.0 (5-19) 12/08/21 02:21 BUN 23 mg/dL (8-23) 12/08/21 02:21 Creatinine 0.7 mg/dL (0.5-0.9) 12/08/21 02:21 GFR Calculation Not Reportable 12/08/21 02:21 Glucose 146 mg/dL (65-115) H 12/08/21 02:21 POC Glucose 215 mg/dL (70-110) H 12/06/21 20:10 Calculated Osmolality 286 mOsm/kg (285-295) 12/08/21 02:21 Calcium 8.2 mg/dL (8.5-10.5) L 12/08/21 02:21 Phosphorus 2.9 mg/dL (2.5-4.5) 12/08/21 02:21 Magnesium 1.8 mg/dL (1.7-2.3) 12/06/21 03:49 Iron 18 ug/dL (37-145) L 12/05/21 01:50 TIBC 125 mcg/dl 12/05/21 01:50 % Saturation 14.4 % (20-50) L 12/05/21 01:50 Unsat Iron Binding 107 ug/dL (112-347) L 12/05/21 01:50 Ferritin 1392 ng/mL (15-150) H 12/05/21 01:50 Total Bilirubin 0.4 mg/dL (0.15-1.2) 12/01/21 18:10 AST 14 U/L (0-32) 12/01/21 18:10 ALT 9 U/L (0-33) 12/01/21 18:10 Alkaline Phosphatase 84 IU/L (35-105) 12/01/21 18:10 Troponin T Baseline 7 ng/L (0-10) 12/01/21 18:10 Troponin T 120 Minute 7.07 ng/L (0-10) 12/01/21 19:38 Delta Troponin T 0.07 ABS# (0-10) 12/01/21 19:38 Troponin T Hi Sens 6Hr 6.85 ng/L (0-10) 12/02/21 01:19 Troponin T Hi Sens 6Hr Delta -0.15 ng/L (0-12) L 12/02/21 01:19 Total Protein 6.5 g/dL (6.6-8.7) L 12/01/21 18:10 Albumin 3.8 g/dL (3.5-5.2) 12/01/21 18:10 Globulin 2.7 g/dL (1.3-4.6) 12/01/21 18:10 Procalcitonin 0.34 ng/mL (0-0.5) 12/05/21 01:50 Urine Color Yellow (Yellow) 12/01/21 18:30 Urine Appearance Clear (CLEAR) 12/01/21 18:30 Urine pH 8 (5-7) H 12/01/21 18:30 Ur Specific [place] 1.015 (1.005-1.030) 12/01/21 18:30 Urine Protein Neg (Negative) 12/01/21 18:30 Urine Glucose (UA) Norm (Normal) 12/01/21 18:30 Urine Ketones Negative (Negative) 12/01/21 18:30 Urine Blood Neg (Negative) 12/01/21 18:30 Urine Nitrate Negative (Negative) 12/01/21 18:30 Urine Bilirubin Neg (Negative) 12/01/21 18:30 Prot Sulfosalicylic Acd Negative (Negative) 12/01/21 18:30 Urine Urobilinogen Norm mg/dL (Negative) 12/01/21 18:30 Ur Leukocyte Esterase Negative (Negative) 12/01/21 18:30 Coronavirus 229E (PCR) Not detected (NOT DETECT) 12/08/21 09:21 SARS-CoV-2 (PCR) Not detected (NOT DETECT) 12/08/21 09:21 Blood Type O Positive 12/03/21 10:54 Rho(D) Type Positive 12/03/21 10:54 Antibody Screen Negative 12/03/21 10:54 Crossmatch See Detail 12/03/21 10:54 Vitals Last Vital Signs Temp 98.0 F 12/08/21 12:00 Pulse 73 12/08/21 12:00 Resp 17 12/08/21 12:00 BP 170/75 12/08/21 12:00 Pulse Ox 93 12/08/21 12:00 Discharge Plan Discharge Patient Disposition: Home Condition: Stable Prescriptions: New amoxicillin-pot clavulanate 875-125 mg Tablet 1 tab PO BID 3 Days Qty: 6 0RF amlodipine 5 mg tablet 5 mg PO DAILY Qty: 30 0RF ferrous gluconate 324 mg (37.5 mg iron) tablet 324 mg PO DAILY Qty: 30 0RF Continued donepezil 10 mg Tablet 10 mg PO DAILY 0RF clopidogrel 75 mg Tablet 75 mg PO DAILY 0RF Aspir-81 81 mg Tablet,Delayed Release (Dr/Ec) 81 mg PO DAILY 0RF simvastatin 40 mg Tablet 40 mg PO DAILY 0RF escitalopram oxalate 10 mg Tablet 10 mg PO DAILY 0RF Discharge Orders: Discharge Order (Routine); Ordered 12/08/21 Ordered By: Nito Cosme Referrals: [facility] [Outside] Hayes Whitaker MD [Physician] - 1 month Jim Oliveira MD [Primary Care Provider] - Discharge Diet: Cardiac Discharge Activity: Resume usual activity and Increase activity as tolerated Patient Instructions: Opioid Safety Activity Restrictions/Additional Instructions: Leave dressings in place Okay to shower or sponge bathe. Weight-bear as tolerated operative hip Discharge Attestations Time Spent in Discharge Care*: greater than 30 min Specific Discharge Activities: educating patient, educating and/or supporting family/caregiver, discussing with medical case worker/social workers/dc planners, documenting/other paperwork and evaluating patient/reviewing data Status at Discharge: Cognitive status at discharge: cognitively intact, Behavioral status at discharge: cooperative, Functional status at discharge: uses cane/walker, Overall status at discharge: patient is progressing back to baseline Quality Metrics Clinical Quality Measures [ No reported AMI, CVA or VTE this stay] Coding Level of Care Code Acute [facility] DC note Diagnoses Postoperative atelectasis J95.89; J98.11 Status post open reduction with internal fixation of fracture Z98.890; Z87.81 Intertrochanteric fracture of left hip S72.142A Fall W19.XXXA History of stroke Z86.73
[2021-12-08 14:24] VITALS: BP 170/75; PULSE 73; RESP 17; TEMP 36.7; O2SAT 93
== END 2021-12-08 15:10 | disposition skilled nursing facility (03) | DRG 481 ==
LOC: ER 12-02 02:42 → MEDSURG 12-02 05:35
PROVIDERS: Internal Medicine; Admitting Provider Orthopaedic Surgery; Emergency Provider Emergency Medicine; PCP Family Medicine; Visit Provider Student in an Organized Health Care Education/Training Program
PROC: 0QS706Z Reposition Left Upper Femur with Intramedullary Internal Fixation Device, Open Approach (ICD-10-PCS; CPT 27245; principal; 2021-12-02 17:15)
DX: S72.142A Displaced intertrochanteric fracture of left femur, initial encounter for closed fracture (principal); J95.89 Other postprocedural complications and disorders of respiratory system, not elsewhere classified; J98.11 Atelectasis; D62 Acute posthemorrhagic anemia; J90 Pleural effusion, not elsewhere classified; W01.0XXA Fall on same level from slipping, tripping and stumbling without subsequent striking against object, initial encounter; Z86.73 Personal history of transient ischemic attack (TIA), and cerebral infarction without residual deficits; F03.90 Unspecified dementia, unspecified severity, without behavioral disturbance, psychotic disturbance, mood disturbance, and anxiety; Z66 Do not resuscitate; Z79.82 Long term (current) use of aspirin; Z79.02 Long term (current) use of antithrombotics/antiplatelets
CPT/HCPCS: 36415; 36416; 36430; 51702; 70450; 70486; 71045; 71250; 72125; 73501; 73502; 74176; 76000; 80048; 80053; 81003; 82728; 82962; 83540; 83550; 83735; 84100; 84145; 84484; 85025; 85610; 86850; 86900; 86920; 87635; 90471; 90715; 92610; 93005; 93306; 96372; 96374; 96376; 97110; 97161; 97167; 97530; 97535; 99285; C1713; J1650; J1756; J1940; J2270; J2704; J2920; J3010; J7030; J7040; P9016

== ENCOUNTER → 2022-01-07 09:37 | Outpatient (BNVA) | payer OTHER, SELFPAY | PROVIDERS: PCP Family Medicine; Visit Provider Orthopaedic Surgery | DX: S72.142A Displaced intertrochanteric fracture of left femur, initial encounter for closed fracture (principal); X58.XXXA Exposure to other specified factors, initial encounter | CPT/HCPCS: 73502; 99024 ==

== ENCOUNTER 2022-10-02 07:07 | Emergency (ER) | payer MEDICARE, OTHER, SELFPAY ==
[2022-10-02 07:08] VITALS: BP 101/57; PULSE 79; RESP 16; TEMP 36.5; O2SAT 93
--- NOTE | 2022-10-02 07:23 | CT_ITS ---
WS: [id number] CT HEAD NONCONTRAST HISTORY: AMS TECHNIQUE: Contiguous axial imaging performed through the brain in 2.5 mm imaging. Bone and soft tiss ue windows. Sagittal and coronal reformats reviewed. All CT scans at [facility] use at least one of these dose optimization techniques: automated exposure control; mA and/or kV adjustment per pa tient size (includes targeted exams where dose is matched to clinical indication); or iterative recon struction. DLP: 1082.50 mGy.cm COMPARISON: 12/05/2021 No acute intracranial hemorrhage, midline shift or mass effect. Moderate to severe atrophy with small vessel ischemic disease. Bilateral basal ganglia and thalami la cunar infarcts. No areas of sulcal effacement. There is a more focal larger infarct RIGHT temporal l obe. Ventricles: Diffuse ventricular dilatation is probably on the basis of atrophy. No inferior displacement of the cerebellar tonsils. Extensive atherosclerotic plaque within the intra cranial carotid arteries and also the vertebral arteries. Paranasal sinuses: As visualized are clear. Mastoid air cells: Well pneumatized. Cerumen in the external auditory canals. Calvarium and scalp: Skull is intact with no soft tissue edema or swelling. CT/CT head wo con* [id number] IMPRESSION: 1. No acute intracranial hemorrhage or edema. 2. Advanced atrophy and small vessel ischemic disease. 3. Numerous bilateral infarcts in the basal ganglia and thalami. 4. Remote RIGHT temporal lobe infarct. 5. Ventriculomegaly on the basis of atrophy.
--- NOTE | 2022-10-02 07:32 | ECG_ITS ---
[facility] Test Date: 2022-10-02 Pat Name: Rita Vega Department: Room: Gender: Female Head Of Music: : 1935 Requested By: Costa Owens Order Number: [id number] Sara MD: Chuckie Alcaraz M.D. Measurements Intervals [place] Rate: 84 P: 46 [place]: 187 QRS: 120 QRSD: 98 T: 52 QT: 412 QTc: 488 Interpretive Statements SINUS RHYTHM INCOMPLETE RIGHT BUNDLE BRANCH BLOCK [90+ ms QRS DURATION, TERMINAL R IN V1/V2, 40+ ms S IN I/aVL/V4/V5/V6] POSSIBLE RIGHT VENTRICULAR HYPERTROPHY [SOME/ALL OF: PROMINENT R IN V1, LATE TRANSITION, RAD, PAUL, SSS] Compared to ECG 12/01/2021 18:41:36 No significant changes Electronically Signed On 10-02-2022 21:23:13 CDT by Chuckie Alcaraz M.D. [id number]
[2022-10-02 07:34] LABS: Basophils # 0.1 10^3/uL (0.0-0.1); Eosinophils # 0.6 10^3/uL (0.0-0.8); Eosinophils % 9.7 %; Hematocrit 36.4 % (37.0-47.0); Hemoglobin 11.6 g/dL (11.5-15.3); Lymphocytes # 1.3 10^3/uL (0.8-4.8); Lymphocytes % 20.6 %; Mean Corpuscular HGB Conc 31.9 g/dL (30.0-36.0); Mean Corpuscular Hemoglobin 32.2 pg (28.0-34.0); Mean Corpuscular Volume 101.1 fl (81-99); Mean Platelet Volume 11.1 fL (7.4-10.4); Monocytes # 0.5 10^3/uL (0.2-0.9); Monocytes % 8.5 %; Neutrophils # 3.67 10^3/uL (1.8-7.7); Nucleated Red Blood Cells % 0 %; Platelet Count 232 10^3/cmm (130-400); Red Cell Distribution Width 13.2 % (12.1-15.1); White Blood Count 6.1 10^3/uL (4.0-10.0)
--- NOTE | 2022-10-02 07:36 | W.ED.GENADLT ---
HPI - General Adult General: Chief complaint: Altered Mental Status Stated complaint: AMS Time Seen by Provider: 10/02/22 07:21 Source: patient Mode of arrival: EMS History of Present Illness: 87-year-old female presents to the emergency room with report of altered mental status. EMS brought her and they are reporting that she was found this morning unresponsive at around 6:10 AM. EMS reported on the arrived she was awake and responsive on arrival here she is awake and responsive interactive she denies any complaints. She does have some mild dementia. She denies any abdominal or chest pain and review of systems is generally negative. She is smiling laughing and interactive with the only thing I can get her to report in the way of positive review of systems as she jokes that she hurts everywhere but when asked for specific areas she reports them all to be negative. She has no focal neurologic deficits. Relieving factors: none Exacerbating factors: none Associated symptoms: Deny chest pain, confusion, cough, diaphoresis, decreased appetite, dyspnea, fevers/chills, headache(s), malaise, nausea, rash, palpitations, seizures, short of breath, syncope, vomiting or weakness Treatments prior to arrival: none Review of Systems Const: Denies: fever(s), chills, fatigue, malaise or diaphoresis ENMT: Denies: throat pain, ear or mastoid pain, nasal discharge or nasal congestion Card: Denies: chest pain, palpitations or syncope Resp: Denies: dyspnea GI: Denies: abdominal pain, nausea or vomiting : Denies: flank pain, difficulty voiding, dysuria, urinary frequency or urinary urgency Skin/Breast: Denies: rash Neuro: Denies: headache(s) or confusion PFS ED PFSH: Medical History History of stroke Surgical History History of hysterectomy Social History Smoking and tobacco status: never smoked Physical Exam Const: GENERAL APPEARANCE: cooperative and comfortable ORIENTATION/CONSCIOUSNESS: Yes awake HENMT: COMMON NORMALS: normocephalic, atraumatic and hearing grossly normal bilaterally HEAD & SCALP: normocephalic and atraumatic Resp: COMMON NORMALS: normal respiratory effort, No retractions, No use of accessory muscles and clear to auscultation bilaterally AUSCULTATION: clear to auscultation bilaterally Cardio: COMMON NORMALS: regular rate, regular rhythm and No murmurs present (Cardio) RATE: regular rate RHYTHM: regular rhythm GI: COMMON NORMALS: Soft to palpation and No hepatosplenomegaly present AUSCULTATION: Yes normoactive bowel sounds PALPATION: Yes Soft to palpation, No Tenderness to palpation present (GI), No Guarding due to palpation present (GI) and Yes No hepatosplenomegaly present Extremity: COMMON NORMALS: normal to inspection, capillary refill normal, no clubbing, cyanosis or edema, no calf tenderness and no pedal edema Skin: COMMON NORMALS: no rashes or lesions noted GENERAL SKIN EXAM: no rashes or lesions noted Course Vital Signs: Vital signs: Vital Signs Temperature 97.7 F 10/02/22 07:08 Pulse Rate 79 10/02/22 07:08 Respiratory Rate 16 10/02/22 07:08 Blood Pressure 101/57 10/02/22 07:08 Pulse Oximetry 90 10/02/22 08:06 Oxygen Delivery Me thod 10/02/22 08:06 [facility] - General Adult Medical Decision Making Patient awake and alert appropriate for underlying condition. She has a cystitis we will treat discharged back to the [facility]dc continue oral antibiotics Medical Records I reviewed the patient's medical records. Lab Data I reviewed the patient's lab results. 10/02/22 07:00 10/02/22 07:[address] 10/02/22 07:23 IMPRESSION: 1. No acute intracranial hemorrhage or edema. 2. Advanced atrophy and small vessel ischemic disease. 3. Numerous bilateral infarcts in the basal ganglia and thalami. 4. Remote RIGHT temporal lobe infarct. 5. Ventriculomegaly on the basis of atrophy. Laboratory Results WBC 6.1 10^3/uL (4.0-10.0) 10/02/22 07:00 RBC 3.60 10^6/uL (4.1-5.3) L 10/02/22 07:00 Hgb 11.6 g/dL (11.5-15.3) 10/02/22 07:00 Hct 36.4 % (37.0-47.0) L 10/02/22 07:00 MCV 101.1 fl (81-99) H 10/02/22 07:00 MCH 32.2 pg (28.0-34.0) 10/02/22 07:00 MCHC 31.9 g/dL (30.0-36.0) 10/02/22 07:00 RDW 13.2 % (12.1-15.1) 10/02/22 07:00 Plt Count 232 10^3/cmm (130-400) 10/02/22 07:00 MPV 11.1 fL (7.4-10.4) H 10/02/22 07:00 Neut % (Auto) 60.0 % 10/02/22 07:00 Lymph % (Auto) 20.6 % 10/02/22 07:00 [place] % (Auto) 8.5 % 10/02/22 07:00 Eos % (Auto) 9.7 % 10/02/22 07:00 Baso % (Auto) 1.0 % 10/02/22 07:00 Neut # (Auto) 3.67 10^3/uL (1.8-7.7) 10/02/22 07:00 Lymph # (Auto) 1.3 10^3/uL (0.8-4.8) 10/02/22 07:00 [place] # (Auto) 0.5 10^3/uL (0.2-0.9) 10/02/22 07:00 Eos # (Auto) 0.6 10^3/uL (0.0-0.8) 10/02/22 07:00 Baso # (Auto) 0.1 10^3/uL (0.0-0.1) 10/02/22 07:00 Nucleated RBC % (auto) 0 % 10/02/22 07:00 Nucleated RBCs # 0.0 /100WBC 10/02/22 07:00 Specimen Type Arterial 10/02/22 08:34 Sample Site Radial, left 10/02/22 08:34 ABG pH 7.46 (7.35-7.45) H 10/02/22 08:34 ABG pCO2 38.3 mmHg (35-45) 10/02/22 08:34 ABG pO2 68.7 mmHg (80.0-100.0) L 10/02/22 08:34 ABG HCO3 27.1 mmol/L (22-26) H 10/02/22 08:34 ABG O2 Saturation 94.5 10/02/22 08:34 ABG Base Excess 3.1 mmol/L (-2.0-2.0) H 10/02/22 08:34 Paul Test Pos 10/02/22 08:34 A-a O2 Gradient 4.6 mmHg (5-10) L 10/02/22 08:34 Hematocrit 36.5 % (37-47) L 10/02/22 08:34 Hgb O2 Saturation 92.2 % (95-100) L 10/02/22 08:34 Carboxyhemoglobin 0.8 %THgb (0.4-20.1) 10/02/22 08:34 Methemoglobin 1.7 % (0.4-1.5) H 10/02/22 08:34 Total Hemoglobin 11.9 g/dL (12-16) L 10/02/22 08:34 Sodium 139.0 mmol/L (131-143) 10/02/22 08:34 Potassium 4.0 mmol/L (3.5-5.0) 10/02/22 08:34 Glucose 98.0 mg/dL (70-115) 10/02/22 08:34 Ionized Calcium 1.2 mmol/L (1.1-1.4) 10/02/22 08:34 O2 Delivery Device Room air 10/02/22 08:34 Field Naturalist ID Cak 10/02/22 08:34 Sodium 139 mmol/L (136-145) 10/02/22 07:00 Potassium 4.1 mmol/L (3.5-5.1) 10/02/22 07:00 Chloride 103 mmol/L (98-107) 10/02/22 07:00 Carbon Dioxide 25 mmol/L (22-29) 10/02/22 07:00 Anion Gap 15.1 (5-19) 10/02/22 07:00 BUN 21 mg/dL (8-23) 10/02/22 07:00 Creatinine 0.9 mg/dL (0.5-0.9) 10/02/22 07:00 GFR Calculation Not Reportable 10/02/22 07:00 Glucose 86 mg/dL (65-115) 10/02/22 07:00 Calculated Osmolality 290 mOsm/kg (285-295) 10/02/22 07:00 Lactic Acid 0.9 mmol/L (0.5-2.2) 10/02/22 07:39 Calcium 8.9 mg/dL (8.5-10.5) 10/02/22 07:00 Total Bilirubin 0.3 mg/dL (0.15-1.2) 10/02/22 07:00 AST 15 U/L (0-32) 10/02/22 07:00 ALT 10 U/L (0-33) 10/02/22 07:00 Alkaline Phosphatase 60 U/L (35-105) 10/02/22 07:00 Troponin T Baseline 9 ng/L (0-10) 10/02/22 07:00 Troponin T 120 Minute 7.13 ng/L (0-10) 10/02/22 08:34 Delta Troponin T -1.87 ABS# (0-10) L 10/02/22 08:34 Total Protein 6.3 g/dL (6.6-8.7) L 10/02/22 07:00 Albumin 3.7 g/dL (3.5-5.2) 10/02/22 07:00 Globulin 2.6 g/dL (1.3-4.6) 10/02/22 07:00 Lipase 22 U/L (13-60) 10/02/22 07:00 Urine Color Yellow (Yellow) 10/02/22 08:50 Urine Appearance Hazy (CLEAR) A 10/02/22 08:50 Urine pH 7 (5-7) 10/02/22 08:50 Ur Specific [place] 1.015 (1.005-1.030) 10/02/22 08:50 Urine Protein Neg (Negative) 10/02/22 08:50 Urine Glucose (UA) Norm (Normal) 10/02/22 08:50 Urine Ketones Negative (Negative) 10/02/22 08:50 Urine Blood Neg (Negative) 10/02/22 08:50 Urine Nitrate Positive (Negative) H 10/02/22 08:50 Urine Bilirubin 1+ (Negative) H 10/02/22 08:50 Urine Urobilinogen Neg mg/dL (Negative) 10/02/22 08:50 Ur Leukocyte Esterase Trace (Negative) H 10/02/22 08:50 Urine RBC 0-4 /hpf (0-2) H 10/02/22 08:50 Urine WBC 25-40 /hpf (0-5) H 10/02/22 08:50 Ur Squamous Epith Cells 0-4 /hpf (0-5) H 10/02/22 08:50 Amorphous Sediment Not Reportable 10/02/22 08:50 Urine Bacteria 3+ /hpf (NONE) H 10/02/22 08:50 Urine Mucus 1+ /hpf 10/02/22 08:50 Discharge Plan Discharge Patient Disposition: Home Clinical Impression: Cystitis Condition: Stable Prescriptions: New Macrobid 100 mg capsule 100 mg PO BID 7 Days Qty: 14 0RF Rx Instructions: must administer with a meal/food No Action Multi-Vitamin Tablet 1 tab PO DAILY acetaminophen 325 mg Tablet 650 mg PO BID levothyroxine 25 mcg Tablet 25 mcg PO DAILY Milk of Magnesia 400 mg/5 mL Suspension 15 ml PO DAILY PRN (Reason: Constipation) pantoprazole 40 mg Tablet,Delayed Release (Dr/Ec) 40 mg PO DAILY Fleet Enema 19-7 gram/118 mL Enema 118 ml MD DAILY PRN (Reason: Constipation) Colace 100 mg Capsule 100 mg PO DAILY PRN (Reason: Constipation) Miralax 17 gram/dose Powder 4 g PO DAILY melatonin 1 mg Tablet 1 mg PO DAILY donepezil 10 mg Tablet 10 mg PO DAILY clopidogrel 75 mg Tablet 75 mg PO DAILY simvastatin 40 mg Tablet 40 mg PO DAILY escitalopram oxalate 10 mg Tablet 10 mg PO DAILY Discharge Orders: Discharge ED (Routine); Ordered 10/02/22 Ordered By: Costa Pickard Referrals: Jim Oliveira MD [Primary Care Provider] - Discharge Diet: Usual diet Discharge Activity: Resume usual activity Patient Instructions: Opioid Safety, Pain Management Activity Restrictions/Additional Instructions: You were found today to have a mild cystitis. Will start on oral antibiotics Macrobid 1 twice daily for 7 days follow-up with your primary care doctor at the [facility]. Coding Level of Care Code ED Publications Production Supervisor for Shanti Herman
[2022-10-02 07:45] LABS: Alanine Aminotransferase 10 U/L (0-33); Albumin Level 3.7 g/dL (3.5-5.2); Alkaline Phosphatase 60 U/L (35-105); Anion Gap 15.1 (5-19); Aspartate Amino Transferase 15 U/L (0-32); Blood Urea Nitrogen 21 mg/dL (8-23); Calcium 8.9 mg/dL (8.5-10.5); Carbon Dioxide 25 mmol/L (22-29); Chloride 103 mmol/L (98-107); Globulin 2.6 g/dL (1.3-4.6); Glucose 86 mg/dL (65-115); Lipase 22 U/L (13-60); Osmolality Calculated 290 mOsm/kg (285-295); Potassium 4.1 mmol/L (3.5-5.1); Sodium 139 mmol/L (136-145); Total Bilirubin 0.3 mg/dL (0.15-1.2); Total Protein 6.3 g/dL (6.6-8.7)
[2022-10-02 07:48] LABS: Troponin(5th) Baseline 9 ng/L (0-10)
[2022-10-02 08:02] LABS: Lactic Sepsis W/Reflex 0.9 mmol/L (0.5-2.2)
[2022-10-02 08:06] VITALS: O2SAT 90
[2022-10-02 08:46] LABS: ABG PCO2 38.3 mmHg (35-45); ABG PH Result 7.46 (7.35-7.45); Alveolar-Arterial Oxygen Gradi 4.6 mmHg (5-10); Arterial Blood Gas Hematocrit 36.5 % (37-47); Base Excess ABG 3.1 mmol/L (-2.0-2.0); Blood Gas Allen Test Pos; Blood Gas Operator Identificat CAK; Blood Gas Sample Site Radial, left; Blood Gas Sample Type Arterial; Carboxyhemoglobin 0.8 %THgb (0.4-20.1); HCO3 ABG 27.1 mmol/L (22-26); HGB O2 Sat 92.2 % (95-100); Ionized Calcium Level - ABG 1.2 mmol/L (1.1-1.4); Methemoglobin 1.7 % (0.4-1.5); Oxygen Device ROOM AIR; Oxygen Saturation ABG 94.5; PO2 ABG 68.7 mmHg (80.0-100.0); Total Hemoglobin 11.9 g/dL (12-16)
[2022-10-02 08:55] LABS: Troponin 5 2HR 7.13 ng/L (0-10)
[2022-10-02 09:19] LABS: Add Urine Microscopic? YES; Bilirubin Urine 1+ (Negative); Blood Urine Neg (Negative); Glucose Urine UA Norm (Normal); Ketones Urine Negative (Negative); Leukocyte Esterase Urine Trace (Negative); Nitrate Urine Positive (Negative); Protein Urine Neg (Negative); Specific Gravity, Urine 1.015 (1.005-1.030); Urine Appearance Hazy (CLEAR); Urine Color Yellow (Yellow); Urobilinogen Urine Neg (Negative); pH Urine 7 (5-7)
[2022-10-02 09:20] LABS: Bacteria Urine 3+ /hpf; Mucus Urine 1+ /hpf; RBC Urine 0-4 /hpf (0-2); Squamous Epithelial Cell Urine 0-4 /hpf (0-5); WBC Urine 25-40 /hpf (0-5)
[2022-10-02 09:21] LABS: Add Urine Culture? Yes
[2022-10-02 09:32] LABS: Troponin 5 2HR Delta -1.87 ABS# (0-10)
== END 2022-10-02 10:12 | disposition home or self-care (01) ==
PROVIDERS: Emergency Provider Family Medicine; PCP Family Medicine
DX: N30.90 Cystitis, unspecified without hematuria (principal); Z79.02 Long term (current) use of antithrombotics/antiplatelets; Z86.73 Personal history of transient ischemic attack (TIA), and cerebral infarction without residual deficits
CPT/HCPCS: 36600; 70450; 80051; 80053; 81001; 82330; 82805; 83605; 83690; 84484; 85025; 87077; 87086; 87186; 93005; 99285